=== PATIENT | male | born 1940 | race Hispanic/Latino ===

== ENCOUNTER 2018-05-11 16:04 | Inpatient (IN) | payer OTHER, MEDICARE ==
[2018-05-11] MEDS ORDERED: METOPROLOL TARTRATE 5 MG/5 ML INJ IV ONE ×2 (16:40→17:37)
[2018-05-11 16:57] LABS: Absolute Lymphocytes (CBC) 1.4 K/uL (0.7-4.9); Absolute Monocytes 1.4 K/uL (0.1-1.3); Basophils % 0.6 % (0-1.3); Eosinophils % 2.7 % (0-4.4); Hematocrit 27.6 % (39.6-49.0); Lymphocytes % 9.8 % (15.3-44.8); MCH 25.8 pg (27.0-35.0); MCV 80.1 fL (80-100); MPV 8.1 fL (7.6-11.3); Monocytes % 10.1 % (3.3-12.3); RBC Red Blood Cell Count 3.44 M/uL (4.33-5.43)
[2018-05-11 17:11] LABS: Protime INR 1.59
--- NOTE | 2018-05-11 17:12 | RAD REPORT ---
EXAM DESCRIPTION: CT - Head Brain Wo Cont - 05/11/2018 4:54 pm CLINICAL HISTORY: Alteration of awareness/hallucinations COMPARISON: November 2016 TECHNIQUE: Computed axial tomography of the head was obtained. IV contrast was not requested. All CT scans are performed using dose optimization technique as appropriate and may include automated exposure control or mA/KV adjustment according to patient size. FINDINGS: An intracranial bleed is not seen . The ventricles are normal in caliber. No extra-axial fluid collection is noted. Diffuse cerebral atrophy is present Fluid within the sinuses/ mastoids is not seen. Mild to moderate mucoperiosteal thickening involves t he right maxillary sinus IMPRESSION: No acute intracranial abnormality is seen. If patient's symptoms persist MRI of the bra in would be recommended.
--- NOTE | 2018-05-11 17:13 | ER ---
Nurse's Notes [facility] Name: Bobby Mcdaniel Jr Age: 78 yrs Sex: Male : 1940 Arrival Date: 05/11/2018 Time: 16:06 Bed 2 Private MD: Sandra Yi R Diagnosis: Altered mental status, unspecified;Atrial fibrillation and flutter Presentation: 05/11 16:07 Presenting complaint: Child states: "He is more confused than usual, he's been aj1 hallucinating. He's acting like he does when his CHF starts acting up.". 16:07 Acuity: RAYO 2 aj1 16:20 Transition of care: patient was not received from another setting of care. Risk aj1 Assessment: Do you want to hurt yourself or someone else? Patient reports no desire to harm self or others. Initial Sepsis Screen: Does the patient meet any 2 criteria? RR > 20 per min. HR > 90 bpm. Yes Does the patient have a suspected source of infection? Yes: Other: AMS If YES to both, name of provider notified: Stef Chau MD. Care prior to arrival: None. 16:20 Method Of Arrival: Wheelchair aj1 Triage Assessment: 16:20 General: Appears uncomfortable, Behavior is cooperative, agitated. Neuro: Level of aj1 Consciousness is awake, alert, obeys commands, confused, Patient has a history of dementia, but family states that he is more confused than normal. Cardiovascular: Rhythm is irregular Parent/caregiver reports patient has had a higher than normal heart rate. Respiratory: Airway is patent Respiratory effort is even, unlabored, Respiratory pattern is regular, symmetrical. 16:25 Pain: Denies pain. bp Historical: - Allergies: 16:25 No Known Allergies; bp - Home Meds: 16:25 allopurinol 300 mg oral tab 0.5 tab [Active]; aspirin 81 mg Oral TbEC 1 tab once daily bp [Active]; atorvastatin 20 mg Oral tab 1 tab once daily [Active]; fluticasone 50 mcg/actuation nasal spsn 1 spray 2 times per day [Active]; folic acid 800 mcg Oral tab 1 tab once daily [Active]; hydralazine 50 mg Oral tab 1 tab daily [Active]; Lasix 40 mg oral tab [Active]; losartan 100 mg Oral tab 1 tab once daily [Active]; meloxicam 7.5 mg Oral tab 1 tab once daily [Active]; metformin 500 mg Oral tab 2 tabs 2 times per day [Active]; metoprolol tartrate 50 mg Oral tab 1 tab once daily [Active]; Namzaric 28-10 mg Oral CSpX [Active]; potassium chloride 10 mEq Oral cpER 1 cap once daily [Active]; tamsulosin 0.4 mg Oral cp24 1 cap once daily [Active]; warfarin 5 mg Oral tab 1 tab once daily [Active]; Zyrtec 10 mg Oral tab 1 tab once daily [Active]; vitamin b12 shot [Active]; amlodipine 10 mg tab 1 tab once daily [Active]; - PMHx: 16:25 Atrial Fib; CHF; COPD; Dementia; Diabetes - NIDDM; Gout; aj1 16:25 Atrial Fib; CHF; COPD; Dementia; Diabetes - NIDDM; bp - Immunization history:: Flu vaccine is up to date. Adult Immunizations. - Social history:: Smoking status: Patient/guardian denies using tobacco, Smoking status: Patient/guardian denies using tobacco. - Ebola Screening: : Patient denies travel to an Ebola-affected area in the 21 days before illness onset Patient negative for fever greater than or equal to 101.5 degrees Fahrenheit, and additional compatible Ebola Virus Disease symptoms Patient denies exposure to infectious person Patient denies travel to an Ebola-affected area in the 21 days before illness onset No symptoms or risks identified at this time. Screenin:27 Abuse screen: Denies threats or abuse. Denies injuries from another. Nutritional bp screening: No deficits noted. Tuberculosis screening: No symptoms or risk factors identified. Fall Risk None identified. Assessment: 16:25 General: Appears in no apparent distress. uncomfortable, slender, Behavior is bp cooperative, appropriate for age, agitated, uncooperative. General: AFIB RVR NOTED ON MONITOR, MD NOTIFIED. Pain: Denies pain. 17:30 Reassessment: ADMIT IN PROCESS, LOW RVR ON MONITOR. bp 17:47 Reassessment: ADMIT MD AT B/S. bp 19:17 Reassessment: Patient appears in no apparent distress at this time. Patient and/or aa1 family updated on plan of care and expected duration. Pain level reassessed. Patient is alert, oriented x 3, equal unlabored respirations, skin warm/dry/pink. Awaiting bed assignment. 20:08 Reassessment: Patient appears in no apparent distress at this time. Patient is alert, aa1 oriented x 3, equal unlabored respirations, skin warm/dry/pink. Report given to Doretha on 4th floor Patient denies pain at this time. Vital Signs: 16:09 BP 145 / 75; Pulse 152; Resp 24; Temp 98.3; Pulse Ox 97% on R/A; Weight 88.45 kg (R); aj1 Height 5 ft. 11 in. (180.34 cm) (R); 16:30 BP 136 / 91; Pulse 120; Resp 20; Pulse Ox 98% on 2 lpm NC; bp 17:15 BP 124 / 76; Pulse 110; Resp 27; Pulse Ox 97% ; bp 17:30 BP 117 / 67; Pulse 108; Resp 26; Pulse Ox 96% ; bp 17:45 BP 133 / 84; Pulse 120; Resp 20; Pulse Ox 96% ; bp 18:30 BP 138 / 118; Pulse 112; Resp 29; Pulse Ox 96% on 2 lpm NC; bp 19:17 BP 134 / 84; Pulse 116; Resp 22; Pulse Ox 96% on R/A; aa1 20:06 BP 120 / 64; Pulse 112; Resp 22; Temp 98.2; Pulse Ox 99% on R/A; Pain 0/10; aa1 16:09 Body Mass Index 27.20 (88.45 kg, 180.34 cm) aj1 ED Course: 16:06 Patient arrived in ED. tw3 16:06 Sandra Yi MD is Private Physician. tw3 16:08 Stef Chau MD is Attending Physician. kdr 16:09 Triage completed. aj1 16:10 Arm band placed on Patient placed in an exam room, Patient Triage completed at bedside. aj1 16:11 Ezra Cm, LEIDY is Primary Nurse. bp 16:27 Patient has correct armband on for positive identification. Bed in low position. Call bp light in reach. Side rails up X2. Adult w/ patient. 16:40 Inserted saline lock: 20 gauge in left antecubital area, using aseptic technique. Blood bp collected. 16:[address] via stretcher. nj 16:54 CT Head Brain wo Cont In Process Unspecified. EDMS 17:03 XRAY Chest (1 view) In Process Unspecified. EDMS 17:11 Izabela Crews MD is Hospitalizing Provider. kdr 20:05 No provider procedures requiring assistance completed. Patient admitted, IV remains in aa1 place. Administered Medications: 16:40 Drug: Metoprolol 5 mg Route: IVP; Site: left antecubital; bp 17:35 Drug: Metoprolol 5 mg Route: IVP; Site: left antecubital; bp 20:14 Follow up: Response: No adverse reaction; Marked relief of symptoms aa1 Outcome: 17:12 Decision to Hospitalize by Provider. kdr 20:09 Admitted to Tele accompanied by tech, via wheelchair, room 430, with oxygen, Report aa1 called to Doretha 20:09 Condition: stable 20:09 Discharge instructions given to patient, family, Instructed on the need for admit, Demonstrated understanding of instructions. 20:16 Patient left the ED. aa1 Signatures: Dispatcher [employer] Jennifer Plaza, RN RN aj1 Shaunna Waters RN RN aa1 Stef Chau MD MD kdr Jordan, Nathan nj Wade, Tia tw3 Ezra mC, RN RN bp Corrections: (The following items were deleted from the chart) 16:23 16:20 Arm band placed on Patient placed in an exam room, Patient Triage completed at [facility] bedside aj 17:48 17:46 BP 117 / 67; Pulse 108bpm; Resp 26bpm; Pulse Ox 96%; bp bp
--- NOTE | 2018-05-11 17:14 | EDPHYS ---
Physician Documentation [facility] Name: Bobby Mcdaniel Jr Age: 78 yrs Sex: Male : 1940 Arrival Date: 05/11/2018 Time: 16:06 Bed 2 Private MD: Sandra Yi R ED Physician Stef Chau HPI: 05/11 16:58 This 78 yrs old Male presents to ER via Wheelchair with complaints of Elevated kdr Heart Rate, Hallucinations/Confusion. 16:58 The patient presents with confusion, disorientation. Onset: The symptoms/episode kdr began/occurred gradually, 1 week(s) ago. Possible causes: unknown. Associated signs and symptoms: Pertinent positives: confusion, palpitations. Current symptoms: In the emergency department the patient's symptoms are unchanged from the initial presentation. Patient's baseline: Neuro: alert and fully oriented, Motor: no deficits, Ambulation: walks without assistance, Speech: normal, The patient has a previous history of A-fib ww/ RVR. The patient has not experienced similar symptoms in the past. The patient has been recently seen by a physician: the patient's primary care provider, Routine office visits. The patient's states that he has been intermittently confused over the last week and that it usually occurs at night. He has also had elevated HR (Hx of A-fib/RVR). denies any change or missed medications. He has not had this before. Historical: - Allergies: 16:25 No Known Allergies; bp - Home Meds: 16:25 allopurinol 300 mg oral tab 0.5 tab [Active]; aspirin 81 mg Oral TbEC 1 tab once daily bp [Active]; atorvastatin 20 mg Oral tab 1 tab once daily [Active]; fluticasone 50 mcg/actuation nasal spsn 1 spray 2 times per day [Active]; folic acid 800 mcg Oral tab 1 tab once daily [Active]; hydralazine 50 mg Oral tab 1 tab daily [Active]; Lasix 40 mg oral tab [Active]; losartan 100 mg Oral tab 1 tab once daily [Active]; meloxicam 7.5 mg Oral tab 1 tab once daily [Active]; metformin 500 mg Oral tab 2 tabs 2 times per day [Active]; metoprolol tartrate 50 mg Oral tab 1 tab once daily [Active]; Namzaric 28-10 mg Oral CSpX [Active]; potassium chloride 10 mEq Oral cpER 1 cap once daily [Active]; tamsulosin 0.4 mg Oral cp24 1 cap once daily [Active]; warfarin 5 mg Oral tab 1 tab once daily [Active]; Zyrtec 10 mg Oral tab 1 tab once daily [Active]; vitamin b12 shot [Active]; amlodipine 10 mg tab 1 tab once daily [Active]; - PMHx: 16:25 Atrial Fib; CHF; COPD; Dementia; Diabetes - NIDDM; Gout; aj1 16:25 Atrial Fib; CHF; COPD; Dementia; Diabetes - NIDDM; bp - Immunization history:: Flu vaccine is up to date. Adult Immunizations. - Social history:: Smoking status: Patient/guardian denies using tobacco, Smoking status: Patient/guardian denies using tobacco. - Ebola Screening: : Patient denies travel to an Ebola-affected area in the 21 days before illness onset Patient negative for fever greater than or equal to 101.5 degrees Fahrenheit, and additional compatible Ebola Virus Disease symptoms Patient denies exposure to infectious person Patient denies travel to an Ebola-affected area in the 21 days before illness onset No symptoms or risks identified at this time. ROS: 16:58 Constitutional: Negative for fever, chills, and weight loss, Eyes: Negative for injury, kdr pain, redness, and discharge, ENT: Negative for injury, pain, and discharge, Neck: Negative for injury, pain, and swelling, Respiratory: Negative for shortness of breath, cough, wheezing, and pleuritic chest pain, Abdomen/GI: Negative for abdominal pain, nausea, vomiting, diarrhea, and constipation, Back: Negative for injury and pain, : Negative for injury, bleeding, discharge, and swelling, MS/Extremity: Negative for injury and deformity, Skin: Negative for injury, rash, and discoloration, Neuro: Negative for headache, weakness, numbness, tingling, and seizure activity. Allergy/Immunology: Negative for hives, rash, and allergies, Endocrine: Negative for neck swelling, polydipsia, polyuria, polyphagia, and marked weight changes, Hematologic/Lymphatic: Negative for swollen nodes, abnormal bleeding, and unusual bruising. 16:58 Cardiovascular: Positive for palpitations, Negative for chest pain, edema, orthopnea. 16:58 Psych: Positive for insomnia, Confusion. Exam: 17:08 Constitutional: This is a well developed, well nourished patient who is awake, alert, kdr and in no acute distress. Head/Face: Normocephalic, atraumatic. Eyes: Pupils equal round and reactive to light, extra-ocular motions intact. Lids and lashes normal. Conjunctiva and sclera are non-icteric and not injected. Cornea within normal limits. Periorbital areas with no swelling, redness, or edema. Neck: Trachea midline, no thyromegaly or masses palpated, and no cervical lymphadenopathy. Supple, full range of motion without nuchal rigidity, or vertebral point tenderness. No Meningismus. Chest/axilla: Normal chest wall appearance and motion. Nontender with no deformity. No lesions are appreciated. Respiratory: Lungs have equal breath sounds bilaterally, clear to auscultation and percussion. No rales, rhonchi or wheezes noted. No increased work of breathing, no retractions or nasal flaring. Abdomen/GI: Soft, non-tender, with normal bowel sounds. No distension or tympany. No guarding or rebound. No evidence of tenderness throughout. Back: No spinal tenderness. No costovertebral tenderness. Full range of motion. Skin: Warm, dry with normal turgor. Normal color with no rashes, no lesions, and no evidence of cellulitis. MS/ Extremity: Pulses equal, no cyanosis. Neurovascular intact. Full, normal range of motion. Psych: Awake, alert, with orientation to person, place and time. Behavior, mood, and affect are within normal limits. 17:08 Neuro: Orientation: no acute changes, per family, Mentation: able to follow commands, confused. 17:09 Cardiovascular: Rate: tachycardic, Rhythm: irregularly irregular, Heart sounds: normal, kdr Edema: 1+ edema to level of left midcalf, left ankle, right midcalf and right ankle. Vital Signs: 16:09 BP 145 / 75; Pulse 152; Resp 24; Temp 98.3; Pulse Ox 97% on R/A; Weight 88.45 kg (R); aj1 Height 5 ft. 11 in. (180.34 cm) (R); 16:30 BP 136 / 91; Pulse 120; Resp 20; Pulse Ox 98% on 2 lpm NC; bp 17:15 BP 124 / 76; Pulse 110; Resp 27; Pulse Ox 97% ; bp 17:30 BP 117 / 67; Pulse 108; Resp 26; Pulse Ox 96% ; bp 17:45 BP 133 / 84; Pulse 120; Resp 20; Pulse Ox 96% ; bp 18:30 BP 138 / 118; Pulse 112; Resp 29; Pulse Ox 96% on 2 lpm NC; bp 19:17 BP 134 / 84; Pulse 116; Resp 22; Pulse Ox 96% on R/A; aa1 20:06 BP 120 / 64; Pulse 112; Resp 22; Temp 98.2; Pulse Ox 99% on R/A; Pain 0/10; aa1 16:09 Body Mass Index 27.20 (88.45 kg, 180.34 cm) aj1 MDM: 17:09 Data reviewed: vital signs, nurses notes, lab test result(s), radiologic studies. kdr Counseling: I had a detailed discussion with the patient and/or guardian regarding: the historical points, exam findings, and any diagnostic results supporting the discharge/admit diagnosis, lab results, radiology results. 17:12 Patient medically screened. kdr 05/11 16:37 Order name: Basic Metabolic Panel kdr 05/11 16:37 Order name: CBC with Diff kdr 05/11 16:37 Order name: LFT's kdr 05/11 16:37 Order name: Magnesium kdr 05/11 16:37 Order name: NT PRO-BNP kdr 05/11 16:37 Order name: PT-INR kdr 05/11 16:37 Order name: Troponin (emerg Dept Use Only) kdr 05/11 16:37 Order name: XRAY Chest (1 view) kdr 05/11 16:37 Order name: EKG; Complete Time: 16:38 kdr 05/11 16:37 Order name: Cardiac monitoring; Complete Time: 16:41 kdr 05/11 16:37 Order name: CT Head Brain wo Cont kdr 05/11 16:38 Order name: Basic Metabolic Panel EDMS 05/11 16:38 Order name: CBC with Automated Diff EDMS 05/11 16:37 Order name: EKG - Nurse/Tech; Complete Time: 16:41 kdr 05/11 16:37 Order name: IV Saline Lock; Complete Time: 16:41 kdr 05/11 16:37 Order name: Labs collected and sent; Complete Time: 16:41 kdr 05/11 16:37 Order name: O2 Per Protocol; Complete Time: 16:41 kdr 05/11 16:37 Order name: O2 Sat Monitoring; Complete Time: 16:41 kdr Administered Medications: 16:40 Drug: Metoprolol 5 mg Route: IVP; Site: left antecubital; bp 17:35 Drug: Metoprolol 5 mg Route: IVP; Site: left antecubital; bp 20:14 Follow up: Response: No adverse reaction; Marked relief of symptoms aa1 Disposition: 05/11/18 17:12 Hospitalization ordered by Izabela Crews for Observation. Preliminary diagnosis are Altered mental status, unspecified, Atrial fibrillation and flutter. - Bed requested for Telemetry/MedSurg (observation). - Status is Observation. aa1 - Condition is Fair. - Problem is new. - Symptoms have improved. UTI on Admission? No Signatures: Dispatcher [employer] EDMS Jennifer Santos RN RN aj1 Soumya Buitrago RN RN kl Kern, Alissa, RN RN aa1 Stef Chau MD MD [facility] Ezra Cm RN RN bp Corrections: (The following items were deleted from the chart) 17:09 16:58 Constitutional: Negative for fever, chills, and weight loss, Eyes: Negative for kdr injury, pain, redness, and discharge, ENT: Negative for injury, pain, and discharge, Neck: Negative for injury, pain, and swelling, Respiratory: Negative for shortness of breath, cough, wheezing, and pleuritic chest pain, Abdomen/GI: Negative for abdominal pain, nausea, vomiting, diarrhea, and constipation, Back: Negative for injury and pain, : Negative for injury, bleeding, discharge, and swelling, MS/Extremity: Negative for injury and deformity, Skin: Negative for injury, rash, and discoloration, Neuro: Negative for headache, weakness, numbness, tingling, and seizure activity. Allergy/Immunology: Negative for hives, rash, and allergies, Endocrine: Negative for neck swelling, polydipsia, polyuria, polyphagia, and marked weight changes, Hematologic/Lymphatic: Negative for swollen nodes, abnormal bleeding, and unusual bruising, kdr 17:10 17:08 Constitutional: This is a well developed, well nourished patient who is awake, kdr alert, and in no acute distress. Head/Face: Normocephalic, atraumatic. Eyes: Pupils equal round and reactive to light, extra-ocular motions intact. Lids and lashes normal. Conjunctiva and sclera are non-icteric and not injected. Cornea within normal limits. Periorbital areas with no swelling, redness, or edema. Neck: Trachea midline, no thyromegaly or masses palpated, and no cervical lymphadenopathy. Supple, full range of motion without nuchal rigidity, or vertebral point tenderness. No Meningismus. Chest/axilla: Normal chest wall appearance and motion. Nontender with no deformity. No lesions are appreciated. Respiratory: Lungs have equal breath sounds bilaterally, clear to auscultation and percussion. No rales, rhonchi or wheezes noted. No increased work of breathing, no retractions or nasal flaring. Abdomen/GI: Soft, non-tender, with normal bowel sounds. No distension or tympany. No guarding or rebound. No evidence of tenderness throughout. Back: No spinal tenderness. No costovertebral tenderness. Full range of motion. Skin: Warm, dry with normal turgor. Normal color with no rashes, no lesions, and no evidence of cellulitis. MS/ Extremity: Pulses equal, no cyanosis. Neurovascular intact. Full, normal range of motion. Psych: Awake, alert, with orientation to person, place and time. Behavior, mood, and affect are within normal limits. kdr 19:20 17:12 Hospitalization Ordered by Izabela Crews MD for Observation. Preliminary diagnosis kl is Altered mental status, unspecified; Atrial fibrillation and flutter. Bed requested for Telemetry/MedSurg (observation). Status is Observation. Condition is Fair. Problem is new. Symptoms have improved. UTI on Admission? No. kdr 20:16 19:20 05/11/2018 17:12 Hospitalization Ordered by Izabela Crews MD for Observation. aa1 Preliminary diagnosis is Altered mental status, unspecified; Atrial fibrillation and flutter. Bed requested for Telemetry/MedSurg (observation). Status is Observation. Condition is Fair. Problem is new. Symptoms have improved. UTI on Admission? No. kl
--- NOTE | 2018-05-11 17:15 | RAD REPORT ---
EXAM DESCRIPTION: [facility] Single View05/11/2018 5:03 pm CLINICAL HISTORY: Atrial fibrillation COMPARISON: June 2017 FINDINGS: Mild interstitial lung opacities are unchanged. The heart is borderline enlarged
[2018-05-11 17:34] LABS: ALT/SGPT 21 U/L (12-78); AST/SGOT 17 U/L (15-37); Albumin 3.3 g/dL (3.4-5.0); Alkaline Phosphatase 89 U/L (45-117); BUN Blood Urea Nitrogen 17 mg/dL (7-18); Bicarbonate 28 mmol/L (21-32); Bilirubin Direct 0.2 mg/dL (0-0.2); Bilirubin Total 0.5 mg/dL (0.2-1.0); Glucose Level 162 mg/dL (74-106); Magnesium 1.7 mg/dL (1.8-2.4); NT PRO-BNP 4565 pg/mL (<450); Potassium 3.2 mmol/L (3.5-5.1); Protein, Total 7.4 g/dL (6.4-8.2); Sodium Level 141 mmol/L (136-145); Troponin (Emerg Dept Use Only) < 0.02 ng/mL (0.0-0.045)
[2018-05-11] MEDS ORDERED: ACETAMINOPHEN 500 MG TAB PO PRN (18:04)
[2018-05-11] MEDS ORDERED: ALBUTEROL 2.5 MG/3 ML NEB SOL NEB PRN (18:04)
[2018-05-11] MEDS ORDERED: METOPROLOL TARTRATE 5 MG/5 ML INJ IV PRN (18:04)
[2018-05-11] MEDS ORDERED: IPRATROPIUM BROM 0.5MG/2.5ML NEB PRN (18:04)
[2018-05-11] MEDS ORDERED: ONDANSETRON 4 MG/2 ML VIAL IV PRN (18:04)
[2018-05-11] MEDS ORDERED: GLUCAGON 1 MG/VIAL IM PRN (18:09)
[2018-05-11] MEDS ORDERED: D50W 25 GM/50 ML SYRINGE IV PRN (18:09)
[2018-05-11] MEDS ORDERED: CEFTRIAXONE/SWI 1gm 1 GM/10 ML SYR ONE (20:57)
[2018-05-11] MEDS: INSULIN -REGULAR HUMAN 50 UNIT/0.5 ML ML SQ SCH (21:00)
[2018-05-11] MEDS ORDERED: CEFTRIAXONE 1 GM/NS 50 ML 1 GM/50 ML BAG IV SCH (21:00)
[2018-05-11] MEDS ORDERED: MAGNESIUM SULFATE 1 gm IVPB 1 GM/100 ML BAG IV ONE (22:16)
[2018-05-11] MEDS ORDERED: POTASSIUM 25 MEQ EFFERV TAB PO ONE (22:17)
[2018-05-11 23:42] LABS: Urine Appearance CLEAR; Urine Bilirubin NEGATIVE (NEG); Urine Blood NEGATIVE (NEG); Urine Color YELLOW; Urine Glucose NEGATIVE (NEG); Urine Protein NEGATIVE (NEG); Urine Specific Gravity 1.015 (1.005-1.030)
[2018-05-11 23:43] LABS: Urine Microscopic Reflex NO UMIC
--- NOTE | 2018-05-12 02:09 | HP ---
Date of Admission: 05/11/2018 Code Status: Do not resuscitate. The patient has a living will. and daughter at the bedside confirmed code status. Consultants: Dr. Thomas, Cardiology. Chief Complaint: Hallucinations, shortness of breath, confusion. History Of Present Illness: The patient is a 78-year-old male with past medical history of dementia congestive heart failure; atrial fibrillation, on Coumadin; insulin-dependent diabetes; COPD with oxygen at night only; hypertension; obstructive sleep apnea on CPAP, who was in his usual state of health until approximately 5 days prior to admission when the patient had some increased frequency of hallucinations along with some dry cough and shortness of breath. The patient has been using his oxygen more during the daytime as well, usually only uses it at night. The patient's symptoms are constant, moderate, progressively worsening. He did see his primary care physician, who gave the patient some allergy medicine for sinus congestion, also found to have some UTI and prostatitis. The patient since then has only had some low-grade fevers and due to worsening hallucinations, comes in to the hospital for further evaluation. The patient was found to be in atrial fibrillation with RVR. His lab work found multiple electrolyte abnormalities including hypokalemia and hypomagnesemia. CT scan of the head was done due to his altered mental state from baseline as he is on blood thinners and had a fall last week, , however, did not show any acute bleed. The patient's chest x-ray showed mild interstitial lung opacities, which were the same since 2017. The patient was then referred for admission. When seen in the ER, he was awake, alert, oriented to self and place, which is around his baseline due to his dementia; however, the hallucinations are new. Past Medical History: Diabetes, non-insulin dependent; Alzheimer's dementia; congestive heart failure; atrial fibrillation, on Coumadin; COPD, oxygen dependent at night; hypertension; sleep apnea, now using CPAP, follows with pulmonology as outpatient. Past Surgical History: None. Medications: List reviewed. Allergies: NO KNOWN DRUG ALLERGIES. THEY DO REPORT ADVERSE SIDE EFFECTS TO CODEINE. THE PATIENT DOES GET CONFUSED. Family History: Positive for coronary artery disease in the mom and the sister. Social History: The patient lives at home. The patient is , has a daughter, is fairly independent in his activities of daily living. Does use a cane for ambulation. No tobacco use. Has quit drinking in 2001. No illicit drug use. 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 Review of Systems: Ten point system reviewed, negative except as per HPI. Physical Examination: Vital Signs: Blood pressure 145/75, pulse 152, respirations 24, temperature 98.3, O2 97% on room air. General: Awake, alert, oriented x2. In some mild distress. Ill-appearing elderly male. HEENT: Normocephalic, atraumatic. PERRLA. EOMI. Moist mucous membranes. Oropharynx is clear. Poor dentition. Conjunctiva is anicteric. Neck: Supple. No JVD. Trachea midline. CV: S1, S2. Irregularly irregular. Peripheral pulses present. Respiratory: Diminished breath sounds at the bases, otherwise moving air well. No wheezing or crackles. The patient slightly tachypneic, but no use of accessory muscles or stridor. Gastrointestinal: Abdomen is soft, nontender, nondistended. Positive bowel sounds. No guarding or rigidity. Extremities: No clubbing, cyanosis, or edema. Neuro: Cranial nerves 2 through 12 intact grossly. No focal neurological deficit. Speech is normal. Strength is 5/5 bilateral upper and lower extremities. Sensation intact to light touch. Skin: No rashes. Normal skin turgor. Psych: Mood is somewhat euphoric. Affect is congruent with mood. Insight and judgment are fair. Laboratory Data: WBC 14.4, H and H 8.9 and 27.6, platelets 368, neutrophils 76% . INR 1.59. Sodium 141, potassium 3.2, chloride 103, CO2 28, BUN 17, creatinine 1.3, glucose 162, calcium 8.8, magnesium 1.7. BNP 4565. Troponin less than 0.02. Albumin 3.3. CT scan of the head shows no acute intracranial abnormality. Mild to moderate mucoperiosteal thickening involves the right maxillary sinus. No intracranial bleed. Chest x-ray shows mild interstitial lung opacities, unchanged from June 2017. Heart borderline enlarged. EKG shows atrial fibrillation, rate of 120s. Assessment And Plan: A 78-year-old male with. 1. Atrial fibrillation with rapid ventricular response. The patient does have a history of atrial fibrillation, is on Coumadin. We will use metoprolol IV p.r.n. to control rate. We will resume Coumadin. We will check INR daily. Currently subtherapeutic. 2. Hypokalemia. 3. Hypomagnesemia. We will replace and monitor. 4. Congestive heart failure, chronic. Last known ejection fraction is 64%. Diastolic dysfunction. 5. Mild pulmonary hypertension. 6. Diabetes mellitus type 2 non-insulin requiring with hyperglycemia. We will continue sliding scale insulin. Check blood glucose levels a.c. and h.s. 7. Chronic obstructive pulmonary disease with chronic respiratory failure. The patient now requiring oxygen 12/02 instead of just at night. We will continue supplemental oxygen and breathing treatments. 8. Essential hypertension. We will resume home medications. 9. Obstructive sleep apnea. Continue CPAP at night. 10. 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 11. Neutrophilic leukocytosis. We will check UA. The patient may have urinary tract infection or prostatitis. May need antibiotics. We will follow up on UA. 12. Gastrointestinal and deep venous thrombosis prophylaxis. The patient is already on Coumadin. Plan: Admit the patient to Med-Surg, place as inpatient. /ROJELIO Voice ID: [id number] [email or web address]
[2018-05-12] MEDS ORDERED: WARFARIN SODIUM 7.5 MG TAB PO SCH (05:00)
[2018-05-12 07:29] LABS: Absolute Lymphocytes (CBC) 1.1 K/uL (0.7-4.9); Absolute Monocytes 1.3 K/uL (0.1-1.3); Absolute Neutrophil 6.7 K/uL (1.8-8.0); Basophils % 0.7 % (0-1.3); Eosinophils % 4.1 % (0-4.4); Hematocrit 24.7 % (39.6-49.0); Lymphocytes % 11.3 % (15.3-44.8); MCH 25.9 pg (27.0-35.0); MCV 80.2 fL (80-100); MPV 7.6 fL (7.6-11.3); Monocytes % 13.7 % (3.3-12.3); RBC Red Blood Cell Count 3.08 M/uL (4.33-5.43)
[2018-05-12] MEDS: INSULIN -REGULAR HUMAN 50 UNIT/0.5 ML ML SQ SCH ×4 (07:30→20:49)
[2018-05-12 07:47] LABS: Bilirubin Total 0.8 mg/dL (0.2-1.0); Magnesium 2.3 mg/dL (1.8-2.4); Phosphorus 2.5 mg/dL (2.5-4.9); Protein, Total 6.6 g/dL (6.4-8.2)
[2018-05-12 08:00] LABS: Protime INR 1.74
[2018-05-12] MEDS ORDERED: POTASSIUM 25 MEQ EFFERV TAB PO ONE (08:27)
[2018-05-12] MEDS ORDERED: CEFTRIAXONE/SWI 1gm 1 GM/10 ML SYR IVP SCH (09:00)
[2018-05-12] MEDS ORDERED: HOME MED [FLUTICASONE 50MCG NASAL SPRAY] NAS SCH (11:00)
[2018-05-12] MEDS: METOPROLOL TAR 50 MG TAB PO SCH (12:00)
[2018-05-12] MEDS: FUROSEMIDE 40 MG TABLET PO SCH (12:16)
[2018-05-12] MEDS: HYDRALAZINE HCL 25 MG TABLET PO SCH ×3 (12:17→20:48)
[2018-05-12] MEDS: LOSARTAN POTASSIUM 50 MG TABLET PO SCH (12:18)
[2018-05-12] MEDS: AMLODIPINE 10 MG TAB PO SCH (12:18)
[2018-05-12] MEDS: ALLOPURINOL 300 MG TAB PO SCH (12:18)
[2018-05-12] MEDS: ASPIRIN EC 81 MG TAB PO SCH (12:19)
[2018-05-12] MEDS: POTASSIUM CL SA 10 MEQ TAB PO SCH (12:19)
[2018-05-12] MEDS ORDERED: HOME MED 1 EA UNK (Hydralazine Hcl [Apresoline] 1 TAB) PO SCH (14:00)
--- NOTE | 2018-05-12 15:50 | PN ---
Date of Progress Note: 05/12/2018 Subjective: The patient seen and examined, chart reviewed, and case discussed with RN. at the bedside. The patient had an uneventful night, not having as much visual hallucinations, but still co nfused. Review of Systems: Limited due to the patient's medical condition, however, negative except as above. Medications: List reviewed. Objective: Vital Signs: Temperature 97.9, heart rate 117, respirations 18, blood pressure 132/82, O 2 94% on 4 L via nasal cannula. General: Awake, alert, oriented x2, not in any acute distress. Ill-appearing male, elderly. CV: S1, S2. Irregularly irregular. Respiratory: Moving air well bilaterally. No wheezing. Gastrointestinal: Abdomen is soft, nontender, nondistended. Positive bowel sounds. Extremities: No clubbing, cyanosis. Trace pedal edema. Neurologic: Nonfocal. Laboratory Data: Sodium 142, potassium 3, chloride 104, CO2 30, BUN 14, creatinine 1, glucose 134, c alcium 8.7, magnesium 2.3, phosphorus 2.5. WBC 9.5, H and H 8 and 24.7, platelets 305, neutrophils 7 0%, INR 1.74. UA is negative. Assessment: A 78-year-old male with: 1.Atrial fibrillation with rapid ventricular response. We will continue metoprolol IV. We will res ume home dose of metoprolol. Continue Coumadin. INR subtherapeutic at 1.74. Appreciate Dr. Thomas 's input, likely due to electrolyte disturbances. 2.Hypokalemia. Replace and monitor. 3.Hypomagnesemia. We will replace and monitor. 4.Diastolic congestive heart failure, chronic, EF is 64%. We will continue with 1500 mL fluid restr iction and monitor I's and O's, daily weights. 5.Mild pulmonary hypertension. 6.Diabetes mellitus type 2 non-insulin requiring with hyperglycemia. Continue sliding scale insulin and continue Accu-Cheks. 7.Chronic obstructive pulmonary disease with chronic respiratory failure. The patient usually on ox ygen just at night, however, at this point on 4 L throughout the day. 8.Sinusitis. Continue symptomatic treatment with Flonase. 9.Essential hypertension. Resume home medications. 10.Obstructive sleep apnea. The patient compliant with CPAP at night. 11.Alzheimer dementia, early onset with behavioral disturbances and hallucinations. Stable. 12.Neutrophilic leukocytosis, resolved. UA is negative. Chest x-ray is negative. We will DC antib iotics. 13.Gastrointestinal and deep venous thrombosis prophylaxis. The patient already on Coumadin. Plan: Recheck potassium level. Follow up with Cardiology. Will likely need repeat echocardiogram. /ROJELIO Voice ID: [id number] Report ID: [id number]
[2018-05-12] MEDS ORDERED: POTASSIUM CL SA 10 MEQ TAB PO ONE (17:33)
--- NOTE | 2018-05-12 17:35 | EKG ---
Test Date: 2018-05-11 Test Time: 16:30:11 Pulvi Mixer Operator: JUNIOR MEASUREMENT RESULTS: Intervals: Rate: 133 NV: QRSD: 86 QT: 312 QTc: 464 Odell: P: NV: QRS: -64 T: 81 INTERPRETIVE STATEMENTS: Atrial fibrillation with rapid ventricular response Left axis deviation Abnormal ECG Compared to ECG 06/21/2017 08:03:52 Left-axis deviation now present Ventricular premature complex(es) no longer present Aberrant conduction of supraventricular beat(s) no longer present Left anterior fascicular block no longer present Electronically Signed On 05-12-18 17:33:36 CDT by Bienvenido Thomas
[2018-05-12] MEDS: TAMSULOSIN 0.4 MG SR CAP PO SCH (20:48)
[2018-05-12] MEDS: ATORVASTATIN 20 MG TAB PO SCH (20:48)
--- NOTE | 2018-05-13 04:43 | CON ---
Date of Consultation: 05/12/[address] Crews's service on 05/11/2018. The patient was seen on 05/12/2018. Reason For Consultation: Atrial fibrillation. History Of Present Illness: Mr. Mcdaniel is 78 years old, admitted with altered mental status, halluc ination, and confusion. He is in chronic atrial fibrillation, but his rate , and I was con sulted because of that. He takes Coumadin for his atrial fibrillation as well as metoprolol. He onl y takes the metoprolol 50 mg daily. No complaints from a cardiac standpoint except for some palpitat ion. No chest pain, shortness of breath, PND, orthopnea, pedal edema, palpitations, or syncope. He was noted to have a white count of 14,000 and what appeared to be a UTI. He was anemic at 8.9. BNP was 4565. His glucose level was 250. His heart rate was 110. He had a negative chest x-ray, negati ve CT of his head, and normal echocardiogram, was done in June of 2017. He is on antibiotics plu s his home medications . Allergies: HE IS ALLERGIC TO CODEINE, LORAZEPAM, AND TRAMADOL. Review of Systems: Negative. Social History: Negative. Family History: Noncontributory. Medications: At home include Coumadin, metformin, metoprolol, losartan, Lasix, hydralazine, aspirin, Lipitor, and amlodipine. Physical Examination: Vital Signs: He was in AFib, rate of 110, afebrile. HEENT: Negative. Neck: Supple. No bruit. Chest: Clear. Cardiac: Revealed atrial fibrillation. No murmurs, gallops, or rubs. Abdomen: Benign. Extremities: Revealed no clubbing, cyanosis, or edema. Diagnostic Data: As stated earlier. Impression And Plan: 1.Chronic atrial fibrillation, on Coumadin. Rate is high because of what appeared to be an infectio n plus anemia. I do not think we are dealing with any congestive heart failure or coronary artery di sease at this point. I will consider increasing his beta-blockers. No cardiac workup recommended. He just had an echocardiogram in June of . He has a negative chest x-ray. 2.Altered mental status. Certainly could be due to an infection and maybe his polypharmacy. 3.Chronic diastolic congestive heart failure. 4.Chronic obstructive pulmonary disease. 5.Diabetes. 6.Dementia. 7.Gout. MATA/ROJELIO Voice ID: [id number] Report ID: [id number]
[2018-05-13 04:54] LABS: Absolute Lymphocytes (CBC) 1.4 K/uL (0.7-4.9); Absolute Neutrophil 5.7 K/uL (1.8-8.0); Basophils % 0.8 % (0-1.3); Eosinophils % 4.9 % (0-4.4); Hematocrit 22.8 % (39.6-49.0); Lymphocytes % 15.8 % (15.3-44.8); MCH 25.8 pg (27.0-35.0); MCV 79.6 fL (80-100); MPV 7.9 fL (7.6-11.3); RBC Red Blood Cell Count 2.87 M/uL (4.33-5.43)
[2018-05-13 05:01] LABS: Potassium 3.1 mmol/L (3.5-5.1)
[2018-05-13] MEDS ORDERED: POTASSIUM CL SA 10 MEQ TAB PO ONE (06:33)
[2018-05-13] MEDS: INSULIN -REGULAR HUMAN 50 UNIT/0.5 ML ML SQ SCH ×4 (07:30→20:39)
[2018-05-13] MEDS ORDERED: HOME MED 1 EA UNK (Losartan Potassium [Cozaar] 100 MG) PO SCH (09:00)
[2018-05-13] MEDS: ASPIRIN EC 81 MG TAB PO SCH (09:02)
[2018-05-13] MEDS: FUROSEMIDE 40 MG TABLET PO SCH (09:02)
[2018-05-13] MEDS: ALLOPURINOL 300 MG TAB PO SCH (09:02)
[2018-05-13] MEDS: POTASSIUM CL SA 10 MEQ TAB PO SCH (09:02)
[2018-05-13] MEDS: AMLODIPINE 10 MG TAB PO SCH (09:03)
[2018-05-13] MEDS: HYDRALAZINE HCL 25 MG TABLET PO SCH ×3 (09:03→20:25)
[2018-05-13] MEDS: LOSARTAN POTASSIUM 50 MG TABLET PO SCH (09:03)
[2018-05-13] MEDS: MEMANTINE PO SCH (09:04)
[2018-05-13] MEDS: DONEPEZIL PO SCH (09:04)
[2018-05-13] MEDS: METOPROLOL TAR 50 MG TAB PO SCH (09:04)
[2018-05-13 13:25] LABS: Ferritin 99.5 ng/mL (26-388)
[2018-05-13 14:20] LABS: Protime INR 1.55
[2018-05-13] MEDS ORDERED: WARFARIN SODIUM 5 MG TAB PO SCH (17:00)
--- NOTE | 2018-05-13 17:41 | PN ---
Date of Progress Note: 05/13/2018 History Of Present Illness: Patient seen and examined, chart reviewed, and case discussed with LEIDY Thomas. The patient's rate has been well controlled. The patient does have some confusion; l ast night he pulled out his CPAP tubing and took off his oxygen, however, was able to be redirected b y family members. Review of Systems: Negative except as above. Medications: List reviewed. Physical Examination: Vital Signs: Temperature 97.2, heart rate 100, blood pressure 148/79, respirations 20, O2 saturation s 91% on 3 L via nasal cannula. General: Awake, alert, oriented x2, in no acute distress, elderly male. CV: S1 and S2, irregularly irregular. Peripheral pulses present. Respiratory: Moving air well bilaterally. No wheezing. Gastrointestinal: Abdomen is soft, nontender, nondistended. Positive bowel sounds. Extremities: No clubbing, cyanosis. The patient does have some pedal edema. Neurologic: Nonfocal. Laboratory Data: WBC 8.6, H and H 7.4/22.8, platelets 297, neutrophils 66%. Recheck of hemoglobin/h ematocrit is 7.5 and 23. INR is pending. Sodium 144, potassium 3.1, chloride 105, CO2 31, BUN 15, c reatinine 1.1, glucose 133, calcium 8.4. Assessment And Plan: A 78-year-old male with: 1.Atrial fibrillation with rapid ventricular response, likely secondary to electrolyte abnormalities and possibly his anemia. We will continue with IV Lopressor, rate is better controlled. Continue o n metoprolol. Appreciate Dr. Thomas's input. The patient is on Coumadin for anticoagulation. INR is subtherapeutic. We will check INR today. 2.Hypokalemia. We will replace and monitor. 3.Hypomagnesemia, replaced. Continue monitoring. 4.Diastolic congestive heart failure, chronic. Ejection fraction is 64%. We will continue fluid re striction and monitor fluid balance. 5.Microcytic normochromic anemia, maybe an anemia of chronic disease versus iron deficiency anemia. We will obtain iron panel and repeat H and H, transfuse as needed. 6.Mild pulmonary hypertension. 7.Diabetes mellitus type 2, non-insulin requiring with hyperglycemia. We will continue sliding scal e including Accu-Cheks. Pressures have been elevated. 8.Chronic obstructive pulmonary disease with chronic respiratory failure. The patient requiring O2 throughout the day, is on 4 L. We will try to wean as tolerated. 9.Sinusitis. Continue Flonase. 10.Essential hypertension, stable. 11.Obstructive sleep apnea, compliant with CPAP at night. 12.Alzheimer dementia, early onset, with behavior disturbance. The patient also having some halluci nations last night, pulled out his CPAP tubing, was able to be redirected however. We recommend carlosi ly staying with him at night for redirection. 13.Gastrointestinal and deep venous thrombosis prophylaxis. The patient is on Coumadin. Replace electrolytes. Check stool occult blood. The patient is on Coumadin. We will check INR, lik laxmi discharge in the next 24 to 48 hours once hemoglobin is stable and heart rate is better controldawit DENISE Voice ID: [id number] Report ID: [id number]
[2018-05-13] MEDS: ATORVASTATIN 20 MG TAB PO SCH (20:25)
[2018-05-13] MEDS: TAMSULOSIN 0.4 MG SR CAP PO SCH (20:25)
[2018-05-14 04:44] LABS: Potassium 3.4 mmol/L (3.5-5.1)
[2018-05-14 06:02] VITALS: BMI 26.9
[2018-05-14 06:10] LABS: Magnesium 2.3 mg/dL (1.8-2.4)
[2018-05-14] MEDS: INSULIN -REGULAR HUMAN 50 UNIT/0.5 ML ML SQ SCH ×2 (07:30→11:30)
[2018-05-14] MEDS: METOPROLOL TAR 50 MG TAB PO SCH (08:56)
[2018-05-14] MEDS: FUROSEMIDE 40 MG TABLET PO SCH (08:57)
[2018-05-14] MEDS: AMLODIPINE 10 MG TAB PO SCH (08:57)
[2018-05-14] MEDS: ALLOPURINOL 300 MG TAB PO SCH (08:59)
[2018-05-14] MEDS: HYDRALAZINE HCL 25 MG TABLET PO SCH ×2 (08:59→13:45)
[2018-05-14] MEDS: LOSARTAN POTASSIUM 50 MG TABLET PO SCH (09:00)
[2018-05-14] MEDS ORDERED: POTASSIUM CL SA 10 MEQ TAB PO ONE (09:00)
[2018-05-14] MEDS: MEMANTINE PO SCH (09:00)
[2018-05-14] MEDS: DONEPEZIL PO SCH (09:00)
[2018-05-14] MEDS: ASPIRIN EC 81 MG TAB PO SCH (09:01)
[2018-05-14] MEDS: POTASSIUM CL SA 10 MEQ TAB PO SCH (09:04)
[2018-05-14 09:19] VITALS: O2SAT 97
[2018-05-14 13:14] VITALS: BP 123/79; TEMP 97.3
[2018-05-14] MEDS ORDERED: WARFARIN SODIUM 7.5 MG TAB PO SCH (17:00)
== END 2018-05-14 14:18 | disposition home or self-care (01) | DRG 309 ==
LOC: ER 16:04 → ERHOLD 17:20 → 4TH 20:00
PROVIDERS: ADMIT Family Medicine; ATTEND Family Medicine
DX: I48.2 Chronic atrial fibrillation (principal); J96.10 Chronic respiratory failure, unspecified whether with hypoxia or hypercapnia; F02.81 Dementia in other diseases classified elsewhere, unspecified severity, with behavioral disturbance; I50.32 Chronic diastolic (congestive) heart failure; Z66 Do not resuscitate; Z79.01 Long term (current) use of anticoagulants; E87.8 Other disorders of electrolyte and fluid balance, not elsewhere classified; E87.6 Hypokalemia; E83.42 Hypomagnesemia; D50.8 Other iron deficiency anemias; E11.65 Type 2 diabetes mellitus with hyperglycemia; J44.9 Chronic obstructive pulmonary disease, unspecified; J32.9 Chronic sinusitis, unspecified; G47.33 Obstructive sleep apnea (adult) (pediatric); G30.0 Alzheimer's disease with early onset; I11.0 Hypertensive heart disease with heart failure; I27.20 Pulmonary hypertension, unspecified; D72.828 Other elevated white blood cell count; I47.0 Re-entry ventricular arrhythmia
CPT/HCPCS: 36415; 70450; 71045; 80048; 80053; 80076; 81003; 82274; 82728; 82962; 83540; 83735; 83880; 84100; 84132; 84466; 84484; 85014; 85018; 85025; 85610; 93005; 94760; 96374; 97163; 99285; J0696; J3475

== ENCOUNTER 2018-05-16 09:35 | Inpatient (IN) | payer OTHER, MEDICARE ==
[2018-05-16] MEDS ORDERED: METOPROLOL XL 50 MG TAB PO ONE (09:56)
[2018-05-16 10:12] LABS: Absolute Lymphocytes (CBC) 1.2 K/uL (0.7-4.9); Absolute Monocytes 1.2 K/uL (0.1-1.3); Absolute Neutrophil 14.5 K/uL (1.8-8.0); Basophils % 0.6 % (0-1.3); Eosinophils % 1.3 % (0-4.4); Hematocrit 27.1 % (39.6-49.0); Lymphocytes % 6.7 % (15.3-44.8); MCH 24.7 pg (27.0-35.0); MCV 80.4 fL (80-100); MPV 7.6 fL (7.6-11.3); Monocytes % 6.7 % (3.3-12.3); RBC Red Blood Cell Count 3.37 M/uL (4.33-5.43)
--- NOTE | 2018-05-16 10:24 | RAD REPORT ---
EXAM DESCRIPTION: RAD - Chest Single View - 05/16/2018 10:18 am CLINICAL HISTORY: DYSPNEA Chest pain. COMPARISON: Chest Single View dated 05/11/2018; Chest Pa And Lat (2 Views) dated 07/20/2017; Chest S kurt View dated 06/21/2017 FINDINGS: Portable technique limits examination quality. Mild interstitial pulmonary edema is seen. The heart is upper limit normal in size. No displaced frac tures. IMPRESSION: Mild CHF versus volume overload pattern suspected.
[2018-05-16 10:37] LABS: BUN Blood Urea Nitrogen 15 mg/dL (7-18); Bicarbonate 27 mmol/L (21-32); Glucose Level 186 mg/dL (74-106); Magnesium 2.2 mg/dL (1.8-2.4); NT PRO-BNP 2396 pg/mL (<450); Potassium 3.4 mmol/L (3.5-5.1); Sodium Level 141 mmol/L (136-145); Troponin (Emerg Dept Use Only) < 0.02 ng/mL (0.0-0.045)
--- NOTE | 2018-05-16 10:47 | EDPHYS ---
Physician Documentation [facility] Name: Bobby Mcdaniel Jr Age: 78 yrs Sex: Male : 1940 Arrival Date: 05/16/2018 Time: 09:36 Bed 7 Private MD: Sandra Yi R ED Physician Kenneth Coy HPI: 05/16 09:47 This 78 yrs old Male presents to ER via Wheelchair with complaints of rn Breathing Difficulty. 09:47 The patient has shortness of breath at rest. Onset: The symptoms/episode began/occurred rn last night. Duration: The symptoms are continuous. The patient's shortness of breath is aggravated by exertion, light activity, supine position, talking, walking. Severity of symptoms: At their worst the symptoms were moderate in the emergency department the symptoms are unchanged. The patient has experienced similar episodes in the past. The patient has been recently been admitted at [facility]. Reports admitted to this hospital recently, admitted for CHF, felt better, last night noticed some difficulty breathing that got worse this AM, taking his meds, no fever. . Historical: - Allergies: 09:42 Lorazepam; hb 09:44 tramadol; hb 09:44 Codeine; hb - Home Meds: 09:44 allopurinol 300 mg Oral tab 0.5 tab [Active]; amlodipine 10 mg tab 1 tab once daily hb [Active]; aspirin 81 mg Oral TbEC 1 tab once daily [Active]; atorvastatin 20 mg Oral tab 1 tab once daily [Active]; fluticasone 50 mcg/actuation nasal spsn 1 spray 2 times per day [Active]; folic acid 800 mcg Oral tab 1 tab once daily [Active]; hydralazine 50 mg Oral tab 1 tab daily [Active]; Lasix 40 mg Oral tab [Active]; losartan 100 mg Oral tab 1 tab once daily [Active]; meloxicam 7.5 mg Oral tab 1 tab once daily [Active]; metformin 500 mg Oral tab 2 tabs 2 times per day [Active]; metoprolol tartrate 50 mg Oral tab 1 tab once daily [Active]; Namzaric 28-10 mg Oral CSpX [Active]; potassium chloride 10 mEq Oral cpER 1 cap once daily [Active]; tamsulosin 0.4 mg Oral cp24 1 cap once daily [Active]; vitamin b12 shot [Active]; Zyrtec 10 mg Oral tab 1 tab once daily [Active]; warfarin 5 mg Oral tab 1 tab once daily [Active]; - PMHx: 09:44 COPD; Atrial Fib; CHF; Dementia; Diabetes - NIDDM; Gout; hb - Immunization history:: Adult Immunizations up to date. - Social history:: Smoking status: Patient/guardian denies using tobacco. - Ebola Screening: : No symptoms or risks identified at this time. - Family history:: not pertinent. - Hospitalizations: : The patient was recently seen at [facility]. ROS: 09:47 Constitutional: Negative for fever, chills, and weight loss, Eyes: Negative for injury, rn pain, redness, and discharge, Neck: Negative for injury, pain, and swelling, Cardiovascular: Negative for chest pain, and edema Respiratory: Negative for wheezing, and pleuritic chest pain, Abdomen/GI: Negative for abdominal pain, nausea, vomiting, diarrhea, and constipation, MS/Extremity: Negative for injury and deformity, Skin: Negative for injury, rash, and discoloration, Neuro: Negative for headache, weakness, numbness, tingling, and seizure. Exam: 09:47 Constitutional: This is a well developed, well nourished patient who is awake, alert, rn + mild to moderate respiratory distress Head/Face: Normocephalic, atraumatic. ENT: dry MM, no stridor Cardiovascular: tachycardic, irregular, no murmur Respiratory: + moderate tachypnea with pursed-lip breathing and poor inspiratory air flow, speaks 3 word sentences Abdomen/GI: soft, non-tender MS/ Extremity: Pulses equal, no cyanosis. Neurovascular intact. Full, normal range of motion. Equal circumference. Neuro: Awake and alert, GCS 15, oriented to person, place, time, and situation. Cranial nerves II-XII grossly intact. Motor strength 5/5 in all extremities. Sensory grossly intact. Vital Signs: 09:41 BP 156 / 92; Pulse 154; Resp 32; Temp 98.0(O); Pulse Ox 80% on 2 lpm NC; dh3 09:50 Pulse Ox 94% on 4 lpm NC; sg 10:47 BP 141 / 103; Pulse 142 MON; Resp 30 S; Pulse Ox 100% on 35% BiPAP; sg 11:56 BP 138 / 94; Pulse 124; Resp 28 S; Pulse Ox 99% on BiPAP; sg 12:24 BP 123 / 60; Pulse 130; Resp 17; Pulse Ox 96% on BiPAP; sg 13:30 BP 116 / 95; Pulse 128; Resp 32; Pulse Ox 98% on BiPAP; sv 10:47 A fib sg MDM: 09:38 Patient medically screened. rn 10:45 Differential diagnosis: Anemia Bronchitis CHF exacerbation, Myocardial Infarction rn pneumonia, Pneumothorax pulmonary edema, reactive airway disease. Data reviewed: vital signs, nurses notes, lab test result(s), EKG, radiologic studies, plain films, and as a result, I will admit patient. Counseling: I had a detailed discussion with the patient and/or guardian regarding: the historical points, exam findings, and any diagnostic results supporting the discharge/admit diagnosis, lab results, radiology results, the need for further work-up and treatment in the hospital. Response to treatment: the patient's symptoms have mildly improved after treatment, and as a result, I will admit patient. Admission orders: after a detailed discussion of the patient's condition and case, the admit orders are written by me. 05/16 09:45 Order name: Blood Culture Adult (2) rn 05/16 09:45 Order name: BMP; Complete Time: 10:39 rn 05/16 09:45 Order name: CBC with Diff; Complete Time: 10:34 rn 05/16 09:45 Order name: Magnesium; Complete Time: 10:39 rn 05/16 09:45 Order name: NT PRO-BNP; Complete Time: 10:39 rn 05/16 09:45 Order name: Troponin (emerg Dept Use Only); Complete Time: 10:39 rn 05/16 09:45 Order name: XRAY CXR (1 view); Complete Time: 10:34 rn 05/16 09:46 Order name: BIPAP rn 05/16 14:17 Order name: Troponin (emerg Dept Use Only) 05/16 14:50 Order name: Troponin (Emerg Dept Use Only) EDMS 05/16 09:45 Order name: EKG; Complete Time: 09:46 rn 05/16 09:45 Order name: Cardiac monitoring; Complete Time: 09:50 rn 05/16 09:45 Order name: EKG - Nurse/Tech; Complete Time: 09:54 rn 05/16 09:45 Order name: IV Saline Lock; Complete Time: 09:54 rn 05/16 09:45 Order name: Labs collected and sent; Complete Time: 09:54 rn 05/16 09:45 Order name: O2 Per Protocol; Complete Time: 09:50 rn 05/16 09:45 Order name: O2 Sat Monitoring; Complete Time: 09:50 rn Administered Medications: 09:53 Drug: Metoprolol TARTRATE (Lopressor) 50 mg Route: PO; sg 10:45 Drug: Lopressor 5 mg Route: IVP; Site: left antecubital; sg 11:32 Drug: Lopressor 5 mg Route: IVP; Site: left antecubital; hb 11:45 Drug: Lasix 40 mg Route: IVP; Site: left antecubital; sg 11:58 Drug: Lopressor 5 mg {Note: BP 138/94, HR 140.} Route: IVP; Site: left antecubital; hb Disposition: 10:45 Critical Care:. rn Disposition: 05/16/18 10:46 Hospitalization ordered by Mini Munguia for Inpatient Admission. Preliminary diagnosis are Acute pulmonary edema, Unspecified atrial fibrillation, Hypoxemia. - Bed requested for Intensive Care Unit. - Status is Inpatient Admission. hb - Condition is Stable. - Problem is new. - Symptoms have improved. UTI on Admission? No Critical care time excluding procedures: 10:45 Critical care time: Bedside Care: 25 minutes, Consultation: 5 minutes, Family rn Intervention: 5 minutes. Total time: 35 minutes Signatures: Dispatcher [employer] Emely Cherry RN RN dw Gay, Steven, RN RN sg Nieto, Roman, MD MD rn Baxter, Heather, RN RN hb Corrections: (The following items were deleted from the chart) 11:39 10:46 Hospitalization Ordered by Mini Munguia MD for Inpatient Admission. Preliminary rn diagnosis is Acute pulmonary edema; Unspecified atrial fibrillation; Hypoxemia. Bed requested for Telemetry/MedSurg (Inpatient). Status is Inpatient Admission. Condition is Stable. Problem is new. Symptoms have improved. UTI on Admission? No. rn 13:16 11:39 05/16/2018 10:46 Hospitalization Ordered by Mini Munguia MD for Inpatient dw Admission. Preliminary diagnosis is Acute pulmonary edema; Unspecified atrial fibrillation; Hypoxemia. Bed requested for Intensive Care Unit. Status is Inpatient Admission. Condition is Stable. Problem is new. Symptoms have improved. UTI on Admission? No. rn 14:51 13:16 05/16/2018 10:46 Hospitalization Ordered by Mini Munguia MD for Inpatient Admission. Preliminary diagnosis is Acute pulmonary edema; Unspecified atrial fibrillation; Hypoxemia. Bed requested for Intensive Care Unit. Status is Inpatient Admission. Condition is Stable. Problem is new. Symptoms have improved. UTI on Admission? No. dw
--- NOTE | 2018-05-16 10:47 | ER ---
Nurse's Notes [facility] Name: Bobby Mcdaniel Jr Age: 78 yrs Sex: Male : 1940 Arrival Date: 05/16/2018 Time: 09:36 Bed 7 Private MD: Sandra Yi R Diagnosis: Acute pulmonary edema;Unspecified atrial fibrillation;Hypoxemia Presentation: 05/16 09:44 Presenting complaint: states: SOB and nonproductive cough x 2 days, worse this hb upon waking today. On 2L home O2. Transition of care: patient was not received from another setting of care. Onset of symptoms was May 16, 2018. Risk Assessment: Do you want to hurt yourself or someone else? Patient reports no desire to harm self or others. Care prior to arrival: None. 09:44 Method Of Arrival: Wheelchair hb 09:44 Acuity: RAYO 2 hb 09:45 Initial Sepsis Screen: Does the patient meet any 2 criteria? RR > 20 per min. HR > 90 sg bpm. Yes Does the patient have a suspected source of infection? No. Patient's initial sepsis screen is negative. Triage Assessment: 09:40 General: Appears in no apparent distress. uncomfortable, well groomed, well developed, sg well nourished, Behavior is calm, cooperative, appropriate for age. Respiratory: Reports shortness of breath labored breathing Onset: The symptoms/episode began/occurred gradually, the patient has moderate shortness of breath. Historical: - Allergies: 09:42 Lorazepam; hb 09:44 tramadol; hb 09:44 Codeine; hb - Home Meds: 09:44 allopurinol 300 mg Oral tab 0.5 tab [Active]; amlodipine 10 mg tab 1 tab once daily hb [Active]; aspirin 81 mg Oral TbEC 1 tab once daily [Active]; atorvastatin 20 mg Oral tab 1 tab once daily [Active]; fluticasone 50 mcg/actuation nasal spsn 1 spray 2 times per day [Active]; folic acid 800 mcg Oral tab 1 tab once daily [Active]; hydralazine 50 mg Oral tab 1 tab daily [Active]; Lasix 40 mg Oral tab [Active]; losartan 100 mg Oral tab 1 tab once daily [Active]; meloxicam 7.5 mg Oral tab 1 tab once daily [Active]; metformin 500 mg Oral tab 2 tabs 2 times per day [Active]; metoprolol tartrate 50 mg Oral tab 1 tab once daily [Active]; Namzaric 28-10 mg Oral CSpX [Active]; potassium chloride 10 mEq Oral cpER 1 cap once daily [Active]; tamsulosin 0.4 mg Oral cp24 1 cap once daily [Active]; vitamin b12 shot [Active]; Zyrtec 10 mg Oral tab 1 tab once daily [Active]; warfarin 5 mg Oral tab 1 tab once daily [Active]; - PMHx: 09:44 COPD; Atrial Fib; CHF; Dementia; Diabetes - NIDDM; Gout; hb - Immunization history:: Adult Immunizations up to date. - Social history:: Smoking status: Patient/guardian denies using tobacco. - Ebola Screening: : No symptoms or risks identified at this time. - Family history:: not pertinent. - Hospitalizations: : The patient was recently seen at [facility]. Screenin:44 Abuse screen: Denies threats or abuse. Denies injuries from another. Nutritional hb screening: No deficits noted. Tuberculosis screening: No symptoms or risk factors identified. Fall Risk Total Ford Fall Scale indicates High Risk Score (45 or more points). Fall prevention measures have been instituted. Side Rails Up X 2 Frequent Obs/Assessments Occuring Family Present and informed to notify staff if the need to leave the bedside As available patient and family educated on Fall Prevention Program and Strategies. Assessment: 09:40 General: Appears in no apparent distress. comfortable, well groomed, well developed, sg well nourished, Behavior is cooperative, appropriate for age. Pain: Denies pain. Neuro: Level of Consciousness is awake, obeys commands, confused, Oriented to person, time, situation, Superintendent Meter Tests are equal bilaterally Moves all extremities. Speech is normal, Facial symmetry appears normal. Cardiovascular: Patient's skin is warm and dry. Chest pain is denied. Respiratory: Airway is patent Respiratory effort is even, labored, Respiratory pattern is regular, tachypnea. GI: Abdomen is round non-distended, Bowel sounds present X 4 quads. : No signs and/or symptoms were reported regarding the genitourinary system. EENT: No signs and/or symptoms were reported regarding the EENT system. Derm: Skin is intact, is thin, Skin is dry, Skin is pale, Skin temperature is warm. Musculoskeletal: No signs and/or symptoms reported regarding the musculoskeletal system. 09:40 Respiratory: Breath sounds are coarse Breath sounds with crackles. sg 09:55 Reassessment: Ada RT at bedside for BiPap per ERP order, pt reports wearing CPAP at sg night and using home 02 every day via NC. 12:30 Reassessment: Pt cleaned of urine incontinence, taken out of clothes placed in a gown. sv Pull up brief placed on pt, urinal at the bedside and pt repositioned higher in the bed. Vital Signs: 09:41 BP 156 / 92; Pulse 154; Resp 32; Temp 98.0(O); Pulse Ox 80% on 2 lpm NC; dh3 09:50 Pulse Ox 94% on 4 lpm NC; sg 10:47 BP 141 / 103; Pulse 142 MON; Resp 30 S; Pulse Ox 100% on 35% BiPAP; sg 11:56 BP 138 / 94; Pulse 124; Resp 28 S; Pulse Ox 99% on BiPAP; sg 12:24 BP 123 / 60; Pulse 130; Resp 17; Pulse Ox 96% on BiPAP; sg 13:30 BP 116 / 95; Pulse 128; Resp 32; Pulse Ox 98% on BiPAP; sv 10:47 A fib sg ED Course: 09:36 Patient arrived in ED. as 09:36 Sandra Yi MD is Private Physician. as 09:38 Kenneth Coy MD is Attending Physician. rn 09:40 Patient has correct armband on for positive identification. Bed in low position. Call light in reach. Side rails up X2. environmental monitoring specialist on. Pulse ox on. NIBP on. Warm blanket given. Head of bed elevated. 09:42 Arm band placed on right wrist. hb 09:44 Triage completed. hb 09:47 Dinesh Dyson, RN is Primary Nurse. sg 09:55 EKG done, by electrical assembly technician. reviewed by Kenneth Coy MD. at1 09:59 Initial lab(s) drawn, by me, sent to lab. First set of blood cultures drawn by me. dh3 09:59 Inserted saline lock: 18 gauge in left antecubital area, using aseptic technique. Blood formerly [facility] collected. 10:18 XRAY CXR (1 view) In Process Unspecified. EDMS 10:26 Second set of blood cultures drawn by me. dh3 10:46 Mini Munguia MD is Hospitalizing Provider. rn 14:20 No provider procedures requiring assistance completed. Patient admitted, IV remains in sg place. intact, No redness/swelling at site. 14:22 Repeat lab(s) drawn. by me, sent to lab. 3 Administered Medications: 09:53 Drug: Metoprolol TARTRATE (Lopressor) 50 mg Route: PO; sg 10:45 Drug: Lopressor 5 mg Route: IVP; Site: left antecubital; sg 11:32 Drug: Lopressor 5 mg Route: IVP; Site: left antecubital; hb 11:45 Drug: Lasix 40 mg Route: IVP; Site: left antecubital; sg 11:58 Drug: Lopressor 5 mg {Note: BP 138/94, HR 140.} Route: IVP; Site: left antecubital; hb Intake: 15:47 IV: 0ml; Total: 0ml. sg Output: 15:47 Urine: 500ml (Voided); Total: 500ml. sg Outcome: 10:46 Decision to Hospitalize by Provider. rn 14:25 Admitted to ICU accompanied by nurse, accompanied by tech, family with patient, via sg stretcher, room 2, with oxygen, with chart, Report called to bedside to Rosanna FORBES 14:25 Condition: stable 14:25 Instructed on the need for admit, safety practices, Demonstrated understanding of instructions. 14:51 Patient left the ED. hb Signatures: Dispatcher [employer] EDUT Lorena Martinez RN RN sv Gay, Steven, RN RN sg Martinez, Amelia as Nieto, Roman, MD MD rn Gonzales, Amanda, automotive collision repair instructor EKG Tat1 Radha Limon RN RN hb Herrera, Deanna 3 Corrections: (The following items were deleted from the chart) 09:42 09:41 BP 156 / 92; Pulse 154bpm; Resp 32bpm; Pulse Ox 80% 2 lpm Nasal Cannula; hb dh3 10:04 10:03 Inserted saline lock: 18 gauge in left antecubital area, using aseptic technique. dh3 Blood collected. dh3
[2018-05-16] MEDS ORDERED: METOPROLOL TARTRATE 5 MG/5 ML INJ IV ONE ×3 (10:48→12:03)
[2018-05-16] MEDS ORDERED: FUROSEMIDE 40 MG/4 ML VIAL ONE (10:56)
[2018-05-16] MEDS ORDERED: ONDANSETRON 4 MG/2 ML VIAL IV PRN (11:46)
[2018-05-16] MEDS ORDERED: ACETAMINOPHEN 500 MG TAB PO PRN (11:46)
[2018-05-16 15:01] VITALS: BMI 27.0
[2018-05-16] MEDS ORDERED: D50W 25 GM/50 ML SYRINGE IV PRN (15:32)
[2018-05-16] MEDS ORDERED: GLUCAGON 1 MG/VIAL IM PRN (15:32)
[2018-05-16] MEDS: ALLOPURINOL 300 MG TAB PO SCH (15:49)
[2018-05-16] MEDS: INSULIN -REGULAR HUMAN 50 UNIT/0.5 ML ML SQ SCH ×2 (15:49→20:08)
[2018-05-16] MEDS: FUROSEMIDE 40 MG/4 ML VIAL IV SCH (16:16)
[2018-05-16] MEDS: Levofloxacin500mg IV 500 MG/100 ML BAG IV SCH (16:16)
--- NOTE | 2018-05-16 16:20 | P.HP ---
Certification for Inpatient Patient admitted to: Inpatient With expected LOS: >2 Midnights Patient will require the following post-hospital care: None Practitioner: I am a practitioner with admitting privileges, knowledge of patient current condition, hospital course, and medical plan of care. Services: Services provided to patient in accordance with Admission requirements found in Title 42 Section 412.3 of the Code of Federal Regulations Patient History Date of Service: 05/16/18 Primary Care Provider: Dr Jiménez - PCP, Dr Saucedo - cardiology, Dr kay - Pulmonology Reason for admission: ARF History of Present Illness: The patient is a 78-year-old male with past medical history of dementia congestive heart failure; atrial fibrillation, on Coumadin; insulin-dependent diabetes; COPD with oxygen at night only; hypertension; obstructive sleep apnea on CPAP, who was in his usual state of health until this AM prior to admission when the patient started having shortness of breath. The patient has been using his oxygen more during the daytime as well for past couple of days, usually only uses it at night. His oxygen saturation this morning was 79-80% without oxygen. The patient's symptoms are constant, moderate, progressively worsening. The patient was recently admitted to the hospital for altered mental status and was found to have infection which caused his altered mental status along with atrial fibrillation with RVR. The patient was evaluated in the ER lab work and imaging was done. The patient was found to be in atrial fibrillation with RVR. His lab work found multiple electrolyte abnormalities including hypokalemia and hypomagnesemia. The patient' s chest x-ray showed mild CHF volume overload pattern. The patient was then referred for admission. And seen in the ER patient was in AFib with RVR with heart rate of 120-130 on BiPAP. Pt was lethargic and somnolent. Allergies codeine Adverse Reaction (Verified 05/11/18 21:56) see comment lorazepam [From Ativan] Adverse Reaction (Verified 05/11/18 21:56) see comment tramadol Adverse Reaction (Verified 05/11/18 21:56) see comment Home Medications: Allopurinol [Zyloprim*] 150 mg PO DAILY 06/21/17 Aspirin [Aspirin EC 81 MG] 81 mg PO DAILY 06/21/17 Atorvastatin Calcium [Lipitor*] 20 mg PO BEDTIME 06/21/17 Fluticasone [Flonase 50MCG Nasal Supai*] 2 sprays NS DAILY PRN 06/21/17 Folic Acid 0.8 mg PO DAILY 06/21/17 Furosemide [Lasix*] 40 mg PO DAILY 06/21/17 Hydralazine HCl [Apresoline] 1 tab PO DAILY 06/21/17 Losartan Potassium [Cozaar] 100 mg PO DAILY 06/21/17 Memantine HCl/Donepezil HCl [Namzaric 28 mg-10 mg Capsule] 1 tab PO DAILY Metformin HCl [Metformin HCl ER] 1,000 mg PO BID 06/21/17 Metoprolol Tartrate [Lopressor*] 50 mg PO DAILY 06/21/17 Potassium Chloride 10 meq PO DAILY 06/21/17 Tamsulosin [Flomax*] 0.4 mg PO BEDTIME 06/21/17 Amlodipine [Norvasc*] 10 mg PO DAILY 05/12/18 Cyanocobalamin [Vitamin B-12*] 1 mcg IM SEECOM 05/12/18 Meloxicam 7.5 mg PO DAILY 05/12/18 Cetirizine HCl [Zyrtec] 10 mg PO DAILY 05/16/18 Warfarin Sodium 5 mg PO DAILY 05/16/18 - Past Medical/Surgical History Has patient received pneumonia vaccine in the past: Yes Diabetic: Yes -: htn -: DM -: COPD -: CHF -: Afib -: dementia -: sleep apnea - Family History Mother -: Heart disease, Hypertension Brother -: Lung disease Sister -: Heart disease - Social History Smoking Status: Never smoker Alcohol use: No CD- Drugs: No Caffeine use: Yes Place of Residence: Home Review of Systems 10-point ROS is otherwise unremarkable Physical Examination - Vital Signs Temperature: 96.9 F Blood Pressure: 143/89 Pulse: 128 Respirations: 37 Pulse Ox (%): 94 - Physical Exam General: Demented, Acute distress, Other (Lethargic and Solmonent. Ill Appearing ) HEENT: Atraumatic, PERRLA, EOMI, Sclerae nonicteric Neck: 2+ carotid pulse no bruit, No LAD, JVD distended Respiratory: Normal air movement, Crackles/rales, Expiratory wheezes, Inspiratory wheezes Cardiovascular: Normal S1 S2, Irregular heart rate/rhythm Gastrointestinal: Normal bowel sounds, Soft and benign, Non-distended, No tenderness Musculoskeletal: No tenderness Integumentary: No rashes Neurological: Abnormal speech, Abnormal strength, Abnormal affect, Dementia Lymphatics: No axilla or inguinal lymphadenopathy - Studies Laboratory Data (last 24 hrs) 05/16/18 09:59: WBC 17.2 H D, Hgb 8.3 L, Hct 27.1 L D, Plt Count 406 D 05/16/18 09:59: Sodium 141, Potassium 3.4 L, BUN 15, Creatinine 1.20, Glucose 186 H, Magnesium 2.2 Assessment and Plan - Problems (Diagnosis) (1) Acute respiratory failure Onset Date: 06/22/17 Current Visit: No Plan: Acute respiratory failure most likely secondary to AFib with RVR versus CHF versus COPD exacerbation -the currently patient is on BiPAP. Will try to wean as tolerated -patient is currently DNR DNI. -chest x-ray consistent with mild CHF versus volume overload pattern -the IV Lasix 40 mg b.i.d. Qualifiers: Respiratory failure complication: hypoxia Qualified Code(s): J96.01 - Acute respiratory failure with hypoxia (2) Atrial fibrillation with RVR Onset Date: 05/14/18 Current Visit: No Status: Acute Plan: Currently patient is in atrial fibrillation with RVR heart rate of 120-130 -started back on metoprolol and Coumadin for anti coagulation -currently on BiPAP as well (3) CHF (congestive heart failure) Onset Date: 05/14/18 Current Visit: No Status: Acute Plan: Acute on chronic congestive heart failure -x-ray was consistent with mild CHF and volume overload pattern -IV Lasix 40 mg b.i.d. at this time -cardiology consulted -will repeat echo Qualifiers: Heart failure type: unspecified Heart failure chronicity: acute on chronic Qualified Code(s): I50.9 - Heart failure, unspecified (4) COPD (chronic obstructive pulmonary disease) Onset Date: 05/14/18 Current Visit: No Status: Acute Plan: COPD with acute exacerbation -Duonebs, steroids, BiPAP at this time -pulmonology will be consulted Qualifiers: COPD type: COPD with acute exacerbation Qualified Code(s): J44.1 - Chronic obstructive pulmonary disease with (acute) exacerbation (5) Diabetes mellitus, type II Onset Date: 05/14/18 Current Visit: No Status: Chronic Plan: Insulin sliding scale and ACHS Qualifiers: Diabetes mellitus usp insulin use: without termite inspector use Diabetes mellitus complication status: without complication Qualified Code(s): E11.9 - Type 2 diabetes mellitus without complications (6) Essential hypertension Onset Date: 05/14/18 Current Visit: No Status: Chronic Plan: Restart home medication (7) JARED (obstructive sleep apnea) Onset Date: 05/14/18 Current Visit: No Status: Chronic Plan: CPAP at night (8) Alzheimer's dementia Onset Date: 05/14/18 Current Visit: No Status: Chronic Qualifiers: Alzheimer's disease onset: early-onset Dementia behavioral disturbance: with behavioral disturbance Qualified Code(s): G30.0 - Alzheimer's disease with early onset; F02.81 - Dementia in other diseases classified elsewhere with behavioral disturbance Discharge Plan: Other Plan to discharge in: 72 Hours - Advance Directives Does patient have a Living Will: Yes Does patient have a Durable POA for Healthcare: No - Code Status/Comfort Care Code Status Assessed: Yes Code Status: Do Not Resuscitate Comfort Measures: Hospice Care Critical Care: Yes
[2018-05-16] MEDS ORDERED: IPRATROPIUM BROM 0.5MG/2.5ML NEB PRN (16:22)
[2018-05-16] MEDS ORDERED: LEVALBUTEROL 0.63 MG/3 ML NEB NEB PRN (16:22)
[2018-05-16 16:25] LABS: Urine Appearance CLEAR; Urine Bilirubin NEGATIVE (NEG); Urine Blood NEGATIVE (NEG); Urine Color YELLOW; Urine Glucose NEGATIVE (NEG); Urine Protein NEGATIVE (NEG); Urine Specific Gravity <=1.005 (1.005-1.030); Urine Urobilinogen 0.2 mg/dL (0.2-1.0)
[2018-05-16 16:26] LABS: Urine Microscopic Reflex NO UMIC
[2018-05-16] MEDS ORDERED: METOPROLOL TARTRATE 5 MG/5 ML INJ IV PRN (17:59)
[2018-05-16] MEDS ORDERED: METOPROLOL TARTRATE 5 MG/5 ML INJ IV STA (17:59)
[2018-05-16] MEDS: prednisoLONE 15 MG/5 ML OSYR PO SCH (20:15)
[2018-05-16] MEDS: TAMSULOSIN 0.4 MG SR CAP PO SCH (20:15)
[2018-05-16] MEDS: ATORVASTATIN 20 MG TAB PO SCH (20:15)
[2018-05-17 06:13] LABS: Absolute Lymphocytes (CBC) 1.1 K/uL (0.7-4.9); Absolute Monocytes 0.9 K/uL (0.1-1.3); Absolute Neutrophil 13.1 K/uL (1.8-8.0); Basophils % 0.4 % (0-1.3); Eosinophils % 0.7 % (0-4.4); Hematocrit 25.9 % (39.6-49.0); Lymphocytes % 7.5 % (15.3-44.8); MCH 25.3 pg (27.0-35.0); MCV 79.3 fL (80-100); MPV 7.5 fL (7.6-11.3); RBC Red Blood Cell Count 3.27 M/uL (4.33-5.43)
[2018-05-17 06:36] LABS: Albumin 2.8 g/dL (3.4-5.0); Bilirubin Total 0.6 mg/dL (0.2-1.0); Magnesium 2.3 mg/dL (1.8-2.4); Phosphorus 3.5 mg/dL (2.5-4.9); Potassium 3.2 mmol/L (3.5-5.1); Protein, Total 6.7 g/dL (6.4-8.2); Thyroid Stimulating Hormone 1.23 uIU/mL (0.360-3.740)
[2018-05-17] MEDS ORDERED: KCL 20 MEQ/100 mL IVPB 20 MEQ/100 ML BAG IV SCH (07:00)
[2018-05-17] MEDS: INSULIN -REGULAR HUMAN 50 UNIT/0.5 ML ML SQ SCH ×5 (07:30→22:14)
--- NOTE | 2018-05-17 07:31 | EKG ---
Test Date: 2018-05-16 Test Time: 09:45:30 Customer Liaison: PATRICK MEASUREMENT RESULTS: Intervals: Rate: 158 [place]: QRSD: 86 QT: 328 QTc: 531 [place]: P: [place]: QRS: -60 T: 89 INTERPRETIVE STATEMENTS: Atrial fibrillation with rapid ventricular response Left axis deviation Nonspecific ST and T wave abnormality Abnormal ECG Compared to ECG 05/11/2018 16:30:11 ST (T wave) deviation now present Electronically Signed On 05-17-18 07:28:00 CDT by Bienvenido Thomas
[2018-05-17] MEDS ORDERED: POTASSIUM CL SA 10 MEQ TAB PO ONE (08:25)
[2018-05-17] MEDS ORDERED: HOME MED 1 EA UNK (Cetirizine Hcl [Zyrtec] 10 MG) PO SCH (09:00)
[2018-05-17] MEDS ORDERED: LOSARTAN POTASSIUM 50 MG TABLET PO SCH ×2 (09:00→12:00)
[2018-05-17] MEDS ORDERED: HOME MED 1 EA UNK (Losartan Potassium [Cozaar] 100 MG) PO SCH (09:00)
[2018-05-17] MEDS ORDERED: HYDRALAZINE HCL 25 MG TABLET PO SCH ×2 (09:00→17:00)
[2018-05-17] MEDS ORDERED: HOME MED 1 EA UNK (Folic Acid [Folic Acid] 0.8 MG) PO SCH (09:00)
[2018-05-17] MEDS ORDERED: HOME MED 1 EA UNK (Hydralazine Hcl [Apresoline] 1 TAB) PO SCH (09:00)
[2018-05-17] MEDS ORDERED: CYANOCOBALAMIN 1000MCG/ML INJ IM SCH ×2 (09:00→10:00)
[2018-05-17] MEDS: CETIRIZINE HCL 5 MG TABLET PO SCH (09:00)
[2018-05-17] MEDS: ALLOPURINOL 300 MG TAB PO SCH (09:06)
[2018-05-17] MEDS: prednisoLONE 15 MG/5 ML OSYR PO SCH ×3 (09:07→21:04)
[2018-05-17] MEDS: WARFARIN SODIUM 5 MG TAB PO SCH (09:07)
[2018-05-17] MEDS: ASPIRIN EC 81 MG TAB PO SCH (09:08)
[2018-05-17] MEDS: METOPROLOL TAR 50 MG TAB PO SCH (09:09)
[2018-05-17] MEDS: FOLIC ACID 1 MG TABLET PO SCH (09:09)
[2018-05-17] MEDS: AMLODIPINE 10 MG TAB PO SCH (09:10)
[2018-05-17] MEDS: FUROSEMIDE 40 MG/4 ML VIAL IV SCH ×2 (09:11→17:08)
--- NOTE | 2018-05-17 13:25 | P.PN ---
Subjective Date of Service: 05/17/18 Primary Care Provider: Dr Jiménez - PCP, Dr Saucedo - cardiology, Dr kay - Pulmonology Chief Complaint: ARF Patient seen and examined at bedside with RN. Chart reviewed. Case discussed with pulmonology. Currently patient is weaned off of BiPAP and is doing well overall. Review of Systems 10-point ROS is otherwise unremarkable Physical Examination - Vital Signs Temperature: 98.7 F Blood Pressure: 112/60 Pulse: 90 Respirations: 20 Pulse Ox (%): 98 - Physical Exam General: Alert, In no apparent distress HEENT: Atraumatic, PERRLA, EOMI Neck: Supple, JVD not distended Respiratory: Normal air movement, Expiratory wheezes, Inspiratory wheezes Cardiovascular: Normal S1 S2, Irregular heart rate/rhythm Gastrointestinal: Normal bowel sounds, No tenderness Musculoskeletal: No tenderness Integumentary: No rashes Neurological: Normal speech, Normal tone, Normal affect Lymphatics: No axilla or inguinal lymphadenopathy - Studies Medications List Reviewed: Yes Assessment And Plan - Current Problems (Diagnosis) (1) Acute respiratory failure Onset Date: 06/22/17 Current Visit: No Plan: Acute respiratory failure most likely secondary to AFib with RVR versus CHF versus COPD exacerbation -currently patient weaned off of BiPAP -patient is currently DNR DNI. -the IV Lasix 40 mg b.i.d. Qualifiers: Respiratory failure complication: hypoxia Qualified Code(s): J96.01 - Acute respiratory failure with hypoxia (2) Atrial fibrillation with RVR Onset Date: 05/14/18 Current Visit: No Status: Acute Plan: Currently patient is in atrial fibrillation with RVR heart rate of 120-130. Rate control at time -started back on metoprolol and Coumadin for anti coagulation -currently weaned off of BiPAP and on nasal cannula (3) CHF (congestive heart failure) Onset Date: 05/14/18 Current Visit: No Status: Acute Plan: Acute on chronic congestive heart failure -x-ray was consistent with mild CHF and volume overload pattern -IV Lasix 40 mg b.i.d. at this time -cardiology consulted. Appreciated recommendations -will repeat echo Qualifiers: Heart failure type: unspecified Heart failure chronicity: acute on chronic Qualified Code(s): I50.9 - Heart failure, unspecified (4) COPD (chronic obstructive pulmonary disease) Onset Date: 05/14/18 Current Visit: No Status: Acute Plan: COPD with acute exacerbation -Duonebs, steroids, BiPAP at this time -pulmonology consulted. Appreciated recommendations Qualifiers: COPD type: COPD with acute exacerbation Qualified Code(s): J44.1 - Chronic obstructive pulmonary disease with (acute) exacerbation (5) Diabetes mellitus, type II Onset Date: 05/14/18 Current Visit: No Status: Chronic Plan: Insulin sliding scale and ACHS Qualifiers: Diabetes mellitus long-term insulin use: without long-term use Diabetes mellitus complication status: without complication Qualified Code(s): E11.9 - Type 2 diabetes mellitus without complications (6) Essential hypertension Onset Date: 05/14/18 Current Visit: No Status: Chronic Plan: Restart home medication (7) JARED (obstructive sleep apnea) Onset Date: 05/14/18 Current Visit: No Status: Chronic Plan: CPAP at night (8) Alzheimer's dementia Onset Date: 05/14/18 Current Visit: No Status: Chronic Qualifiers: Alzheimer's disease onset: early-onset Dementia behavioral disturbance: with behavioral disturbance Qualified Code(s): G30.0 - Alzheimer's disease with early onset; F02.81 - Dementia in other diseases classified elsewhere with behavioral disturbance Discharge Plan: Home Plan to discharge in: 72 Hours - Code Status/Comfort Care Code Status Assessed: Yes Critical Care: No
--- NOTE | 2018-05-17 13:54 | ECHO ---
HEIGHT: 5 ft 11 in WEIGHT: 193 lb 14.4 oz DATE OF STUDY: 05/17/[address]: Mini Munguia MD 2-DIMENSIONAL: YES M.MODE: YES DOPPLER: YES COLOR FLOW: YES TDS: PORTABLE: YES DEFINITY: BUBBLE STUDY: DIAGNOSIS: CONGESTIVE HEART FAILURE CARDIAC HISTORY: CATHERIZATION: SURGERY: PROSTHETIC VALVE: PACEMAKER: MEASUREMENTS (cm) DIASTOLIC (NORMALS) SYSTOLIC (NORMALS) IVSd 1.0 (0.6-1.2) LVEF 51% LVIDd 3.1 (3.5-5.7) LVIDs 2.3 (2.0-3.5) %FS 25% LVPWd 1.0 (0.6-1.2) Ao Diam 2.9 (2.0-3.7) 2 DIMENSIONAL ASSESSMENT: RIGHT ATRIUM: NORMAL LEFT ATRIUM: NORMAL RIGHT VENTRICLE: NORMAL LEFT VENTRICLE: NORMAL TRICUSPID VALVE: NORMAL MITRAL VALVE: NORMAL PULMONIC VALVE: NORMAL AORTIC VALVE: NORMAL PERICARDIAL EFFUSION: NONE AORTIC ROOT: NORMAL LEFT VENTRICULAR WALL MOTION: DECREASED LEFT VENTRICULAR COMPLIANCE. DOPPLER/COLOR FLOW: NORMAL. COMMENTS: NORMAL LEFT VENTRICULAR SIZE AND EJECTION FRACTION (51%). DECREASED LEFT VENTRICULAR COMPLIANCE. NO EFFUSION. TECHNOLOGIST: ROBERTA BLACK
[2018-05-17 16:07] LABS: Potassium 3.8 mmol/L (3.5-5.1)
[2018-05-17] MEDS: Levofloxacin500mg IV 500 MG/100 ML BAG IV SCH (17:08)
[2018-05-17] MEDS ORDERED: GLUCERNA SHAKE 237 ML CAN PO SCH (17:30)
[2018-05-17] MEDS: ATORVASTATIN 20 MG TAB PO SCH (21:03)
[2018-05-17] MEDS: TAMSULOSIN 0.4 MG SR CAP PO SCH (21:04)
[2018-05-18 05:24] LABS: Absolute Lymphocytes (CBC) 1.4 K/uL (0.7-4.9); Absolute Monocytes 0.7 K/uL (0.1-1.3); Absolute Neutrophil 10.1 K/uL (1.8-8.0); Basophils % 0.3 % (0-1.3); Eosinophils % 0.6 % (0-4.4); Hematocrit 25.4 % (39.6-49.0); Lymphocytes % 11.7 % (15.3-44.8); MCH 25.2 pg (27.0-35.0); MCV 79.7 fL (80-100); MPV 8.1 fL (7.6-11.3); Monocytes % 5.6 % (3.3-12.3); RBC Red Blood Cell Count 3.18 M/uL (4.33-5.43)
[2018-05-18 05:46] LABS: Albumin 2.9 g/dL (3.4-5.0); Bilirubin Total 0.4 mg/dL (0.2-1.0); Magnesium 2.4 mg/dL (1.8-2.4); Phosphorus 3.5 mg/dL (2.5-4.9); Potassium 3.6 mmol/L (3.5-5.1)
[2018-05-18 05:57] VITALS: TEMP 97.3
[2018-05-18] MEDS ORDERED: POTASSIUM CL SA 10 MEQ TAB PO ONE (09:00)
[2018-05-18] MEDS ORDERED: NAMZARIC PO SCH (09:00)
[2018-05-18] MEDS: CETIRIZINE HCL 5 MG TABLET PO SCH (09:00)
[2018-05-18] MEDS: INSULIN -REGULAR HUMAN 50 UNIT/0.5 ML ML SQ SCH ×2 (09:52→11:49)
[2018-05-18] MEDS: AMLODIPINE 10 MG TAB PO SCH (09:55)
[2018-05-18] MEDS: ASPIRIN EC 81 MG TAB PO SCH (09:56)
[2018-05-18] MEDS: WARFARIN SODIUM 5 MG TAB PO SCH (09:58)
[2018-05-18] MEDS: METOPROLOL TAR 50 MG TAB PO SCH (09:59)
[2018-05-18] MEDS: FUROSEMIDE 40 MG/4 ML VIAL IV SCH (10:00)
[2018-05-18] MEDS: prednisoLONE 15 MG/5 ML OSYR PO SCH (10:00)
[2018-05-18] MEDS: ALLOPURINOL 300 MG TAB PO SCH (10:01)
[2018-05-18] MEDS: FOLIC ACID 1 MG TABLET PO SCH (10:02)
[2018-05-18 12:40] VITALS: O2SAT 96
--- NOTE | 2018-05-18 12:54 | P.DS ---
Admission Date: 05/16/18 Discharge Date: 05/18/18 Primary Care Provider: Dr Jiménez - PCP, Dr Saucedo - cardiology, Dr kay - Pulmonology Disposition: ROUTINE DISCHARGE Discharge Condition: GOOD Reason for Admission: ARF - Problems (1) Acute respiratory failure Onset Date: 06/22/17 Current Visit: No Qualifiers: Respiratory failure complication: hypoxia Qualified Code(s): J96.01 - Acute respiratory failure with hypoxia (2) Atrial fibrillation with RVR Onset Date: 05/14/18 Current Visit: No Status: Acute (3) CHF (congestive heart failure) Onset Date: 05/14/18 Current Visit: No Status: Acute Qualifiers: Heart failure type: unspecified Heart failure chronicity: acute on chronic Qualified Code(s): I50.9 - Heart failure, unspecified (4) COPD (chronic obstructive pulmonary disease) Onset Date: 05/14/18 Current Visit: No Status: Acute Qualifiers: COPD type: COPD with acute exacerbation Qualified Code(s): J44.1 - Chronic obstructive pulmonary disease with (acute) exacerbation (5) Diabetes mellitus, type II Onset Date: 05/14/18 Current Visit: No Status: Chronic Qualifiers: Diabetes mellitus half-way insulin use: without modeling instructor use Diabetes mellitus complication status: without complication Qualified Code(s): E11.9 - Type 2 diabetes mellitus without complications (6) Essential hypertension Onset Date: 05/14/18 Current Visit: No Status: Chronic (7) JARED (obstructive sleep apnea) Onset Date: 05/14/18 Current Visit: No Status: Chronic (8) Alzheimer's dementia Onset Date: 05/14/18 Current Visit: No Status: Chronic Qualifiers: Alzheimer's disease onset: early-onset Dementia behavioral disturbance: with behavioral disturbance Qualified Code(s): G30.0 - Alzheimer's disease with early onset; F02.81 - Dementia in other diseases classified elsewhere with behavioral disturbance Brief History of Present Illness: The patient is a 78-year-old male with past medical history of dementia congestive heart failure; atrial fibrillation, on Coumadin; insulin-dependent diabetes; COPD with oxygen at night only; hypertension; obstructive sleep apnea on CPAP, who was in his usual state of health until this AM prior to admission when the patient started having shortness of breath. The patient has been using his oxygen more during the daytime as well for past couple of days, usually only uses it at night. His oxygen saturation this morning was 79-80% without oxygen. The patient's symptoms are constant, moderate, progressively worsening. The patient was recently admitted to the hospital for altered mental status and was found to have infection which caused his altered mental status along with atrial fibrillation with RVR. The patient was evaluated in the ER lab work and imaging was done. The patient was found to be in atrial fibrillation with RVR. His lab work found multiple electrolyte abnormalities including hypokalemia and hypomagnesemia. The patient' s chest x-ray showed mild CHF volume overload pattern. The patient was then referred for admission. And seen in the ER patient was in AFib with RVR with heart rate of 120-130 on BiPAP. Pt was lethargic and somnolent. Hospital Course: Overall during the hospital stay patient remained stable Patient was initially admitted to the hospital for acute respiratory failure most likely secondary to CHF and COPD exacerbation along with AFib with RVR. Patient was started on BiPAP in the ER for his acute respiratory failure. Was weaned off to nasal cannula successfully here in the hospital. Patient was also started on IV Lasix for her CHF exacerbation along with duo nebs, steroids for his seat COPD exacerbation. Patient was given IV Lopressor in the ER and was restarted back on home medication for his atrial fibrillation here in the hospital. Once his acute symptoms resolved of CHF and COPD his AFib also resolved and patient had rate control here in the hospital. Patient then was transferred to the regular floor when he was a successfully weaned off of BiPAP. Once on the floor patient did well ambulated well and was doing well overall and thus was discharged home under stable condition. Cardiology and pulmonology were consulted here in the hospital and had no further recommendations. Patient was asked to follow up with the primary care provider and pulmonology on outpatient basis. Patient demonstrated understanding and thus was discharged home under stable condition Vital Signs/Physical Exam: Temp Pulse Resp BP Pulse Ox 97.3 F 106 H 18 129/89 96 05/18/18 08:00 05/18/18 10:05/18/18 08:00 05/18/18 10:05/18/18 08:00 General: Alert, In no apparent distress HEENT: Atraumatic, PERRLA, EOMI Neck: Supple, JVD not distended Respiratory: Clear to auscultation bilaterally, Normal air movement Cardiovascular: Regular rate/rhythm, Normal S1 S2 Gastrointestinal: Normal bowel sounds, No tenderness Musculoskeletal: No tenderness Integumentary: No rashes Neurological: Normal speech, Normal tone, Normal affect Lymphatics: No axilla or inguinal lymphadenopathy Laboratory Data at Discharge: WBC 12.4 K/uL (4.3-10.9) H D 05/18/18 04:45 Hgb 8.0 g/dL (13.6-17.9) L 05/18/18 04:45 Hct 25.4 % (39.6-49.0) L 05/18/18 04:45 Plt Count 359 K/uL (152-406) 05/18/18 04:45 Sodium 139 mmol/L (136-145) 05/18/18 04:45 Potassium 3.6 mmol/L (3.5-5.1) 05/18/18 04:45 BUN 32 mg/dL (7-18) H 05/18/18 04:45 Creatinine 1.50 mg/dL (0.55-1.3) H 05/18/18 04:45 Glucose 237 mg/dL (74-106) H 05/18/18 04:45 Phosphorus 3.5 mg/dL (2.5-4.9) 05/18/18 04:45 Magnesium 2.4 mg/dL (1.8-2.4) 05/18/18 04:45 Total Bilirubin 0.4 mg/dL (0.2-1.0) 05/18/18 04:45 AST 12 U/L (15-37) L 05/18/18 04:45 ALT 18 U/L (12-78) 05/18/18 04:45 Alkaline Phosphatase 81 U/L (45-117) 05/18/18 04:45 Home Medications: Allopurinol [Zyloprim*] 150 mg PO DAILY 06/21/17 Aspirin [Aspirin EC 81 MG] 81 mg PO DAILY 06/21/17 Atorvastatin Calcium [Lipitor*] 20 mg PO BEDTIME 06/21/17 Fluticasone [Flonase 50MCG Nasal [place]*] 2 sprays NS DAILY PRN 06/21/17 Folic Acid 0.8 mg PO DAILY 06/21/17 Furosemide [Lasix*] 40 mg PO DAILY 06/21/17 Hydralazine HCl [Apresoline] 1 tab PO DAILY 06/21/17 Losartan Potassium [Cozaar] 100 mg PO DAILY 06/21/17 Memantine HCl/Donepezil HCl [Namzaric 28 mg-10 mg Capsule] 1 tab PO DAILY Metformin HCl [Metformin HCl ER] 1,000 mg PO BID 06/21/17 Metoprolol Tartrate [Lopressor*] 50 mg PO DAILY 06/21/17 Potassium Chloride 10 meq PO DAILY 06/21/17 Tamsulosin [Flomax*] 0.4 mg PO BEDTIME 06/21/17 Amlodipine [Norvasc*] 10 mg PO DAILY 05/12/18 Cyanocobalamin [Vitamin B-12*] 1 mcg IM SEECOM 05/12/18 Meloxicam 7.5 mg PO DAILY 05/12/18 Cetirizine HCl [Zyrtec] 10 mg PO DAILY 05/16/18 Warfarin Sodium 5 mg PO DAILY 05/16/18 Diet: Regular Activity: Ad tova Followup: Bienvenido Thomas MD [ACTIVE - CAN ADMIT] - 1 Week
[2018-05-18 15:14] VITALS: BP 129/64
--- NOTE | 2018-05-20 02:11 | CON ---
Date of Consultation: 05/17/[address] Munguia's service on 05/16/2018. The patient was seen on 05/17/2018. Reason For Consultation: Shortness of breath and atrial fibrillation with rapid ventricular response . History Of Present Illness: Mr. Mcdaniel is a 78-year-old. He is a DNR. He has multiple medical pro blems including chronic atrial fibrillation, COPD, dyslipidemia, benign prostatic hypertrophy, conges tive heart failure, dementia, diabetes, and gout. He came in with shortness of breath, had hemoglobi n of 8.3. He was rapid atrial fibrillation. Denied any chest pain or syncope. Denied PND, orthopne a, or pedal edema. He denied any fever or chills. Allergies: HE IS ALLERGIC TO CODEINE, TRAMADOL, AND LORAZEPAM. Review of Systems: Negative. Social History: Negative. Family History: Negative. Medications: Include allopurinol, Norvasc, aspirin, Lipitor, losartan, hydralazine, Lasix, inhalers, metoprolol, metformin, Coumadin, potassium, and Flomax. His atrial fibrillation was in 109. Physical Examination: VITAL SIGNS: His vital signs were otherwise stable. He was afebrile. HEENT: Negative. NECK: Supple without any bruit, lymphadenopathy, JVD, or thyromegaly. CHEST: Clear. CARDIAC: Revealed atrial fibrillation. ABDOMEN: Benign. EXTREMITIES: Revealed trace edema. Diagnostic Data: Include a glucose of 198. BNP was 2396. Chest x-ray showed CHF. EKG showed atria l fibrillation. Hemoglobin was 8.3. Laboratory Data: Creatinine is 1.2. He was on CPAP and BiPAP. His white count was 17,000. Impression And Plan: 1.Chronic atrial fibrillation with rapid ventricular response expected considering he probably has b ronchitis with a white count of 17,000. He is anemic. He has some mild exacerbation of chronic sanders tolic congestive heart failure. Echocardiogram in June of 2017 was normal. I agree with antibio tics, and Lasix in addition to his usual regimen. The patient is already on Coumadin. 2.Anemia that should be investigated. 3.Diabetes, poorly controlled. 4.Chronic obstructive pulmonary disease. 5.Dyslipidemia. 6.Dementia. 7.DNR status. 8.Gout. 9.Benign prostatic hypertrophy. I would continue his present regimen including the antibiotics and Lasix. I would like him to get another 2D echocardiogram to make sure there are no new wall motion a bnormalities. MATA/ROJELIO Voice ID: [id number] Report ID: [id number]
--- NOTE | 2018-05-20 03:01 | PN ---
Date of Progress Note: 05/17/2018 The patient was seen on 05/17/2018 for shortness of breath and atrial fibrillation with rapid ventric ular response. Mr. Mcdaniel had an echocardiogram that was actually fairly normal with some decreased left ventricular compliance. He remained in atrial fibrillation, but his rate is 80 today after jessica ng treated with antibiotics and Lasix. He is a DNR. I do not recommend any further cardiac workup a t this point. I would continue his present regimen. He can certainly tolerate a higher dose of meto prolol. I would recommend he continues his Coumadin, but he can go home whenever it is okay with Dr. Munguia. MATA/ROJELIO Voice ID: [id number] Report ID: [id number]
== END 2018-05-18 13:39 | disposition home or self-care (01) | DRG 189 ==
LOC: ER 09:35 → ERHOLD 11:18 → 3RD-ICU 14:20 → 2ND 05-17 14:35
PROVIDERS: ADMIT Family Medicine; ATTEND Family Medicine
PROC: 5A09357 Assistance with Respiratory Ventilation, Less than 24 Consecutive Hours, Continuous Positive Airway Pressure (ICD-10-PCS; principal; 2018-05-16)
DX: J96.01 Acute respiratory failure with hypoxia (principal); I50.33 Acute on chronic diastolic (congestive) heart failure; J44.1 Chronic obstructive pulmonary disease with (acute) exacerbation; G30.0 Alzheimer's disease with early onset; F02.80 Dementia in other diseases classified elsewhere, unspecified severity, without behavioral disturbance, psychotic disturbance, mood disturbance, and anxiety; G47.33 Obstructive sleep apnea (adult) (pediatric); E11.9 Type 2 diabetes mellitus without complications; E87.6 Hypokalemia; E83.42 Hypomagnesemia; Z88.5 Allergy status to narcotic agent; Z79.01 Long term (current) use of anticoagulants; Z79.84 Long term (current) use of oral hypoglycemic drugs; Z66 Do not resuscitate; I48.2 Chronic atrial fibrillation; E78.5 Hyperlipidemia, unspecified; N40.0 Benign prostatic hyperplasia without lower urinary tract symptoms; M10.9 Gout, unspecified; D64.9 Anemia, unspecified; I11.0 Hypertensive heart disease with heart failure
CPT/HCPCS: 36415; 71045; 80048; 80053; 81003; 82962; 83605; 83735; 83880; 84100; 84145; 84443; 84484; 85025; 87040; 93005; 93306; 94660; 94760; 96374; 96375; 97163; 99285; J3420; J7510

== ENCOUNTER 2018-05-21 20:00 | Inpatient (IN) | payer OTHER, MEDICARE ==
[2018-05-21 20:35] LABS: Arterial Blood Carboxyhemoglob 1.4 % (0-1.5); Blood Gas Oxyhemoglobin 91.5 % (94-97); Blood O2 Saturation 93.5 % (92-98.5)
[2018-05-21 20:59] LABS: Absolute Lymphocytes (CBC) 1.6 K/uL (0.7-4.9); Absolute Monocytes 1.6 K/uL (0.1-1.3); Absolute Neutrophil 17.3 K/uL (1.8-8.0); Basophils % 0.8 % (0-1.3); Eosinophils % 2.3 % (0-4.4); Hematocrit 28.4 % (39.6-49.0); Lymphocytes % 7.6 % (15.3-44.8); MCH 25.2 pg (27.0-35.0); MCV 80.6 fL (80-100); Monocytes % 7.7 % (3.3-12.3); Protime INR 1.46; RBC Red Blood Cell Count 3.53 M/uL (4.33-5.43)
[2018-05-21 21:08] LABS: ALT/SGPT 19 U/L (12-78); AST/SGOT 19 U/L (15-37); Albumin 3.2 g/dL (3.4-5.0); Alkaline Phosphatase 73 U/L (45-117); BUN Blood Urea Nitrogen 18 mg/dL (7-18); Bicarbonate 27 mmol/L (21-32); Bilirubin Direct 0.1 mg/dL (0-0.2); Bilirubin Total 0.4 mg/dL (0.2-1.0); Glucose Level 142 mg/dL (74-106); NT PRO-BNP 4590 pg/mL (<450); Potassium 3.7 mmol/L (3.5-5.1); Protein, Total 7.3 g/dL (6.4-8.2); Sodium Level 140 mmol/L (136-145); Troponin (Emerg Dept Use Only) < 0.02 ng/mL (0.0-0.045)
--- NOTE | 2018-05-21 21:15 | RAD REPORT ---
EXAM DESCRIPTION: RAD - Chest Single View - 05/21/2018 8:54 pm CLINICAL HISTORY: AMS;SOB Chest pain. COMPARISON: Chest Single View dated 05/16/2018; Chest Single View dated 05/11/2018; Chest Pa And Lat (2 Views) dated 07/20/2017; Chest Single View dated 06/21/2017 FINDINGS: Portable technique limits examination quality. Mild interstitial pulmonary edema suspected. The heart is upper limit normal size. No displaced fract ures.
[2018-05-21] MEDS ORDERED: FUROSEMIDE 20 MG/ 2ML VIAL ONE ×2 (21:47→23:59)
[2018-05-21] MEDS ORDERED: CEFTRIAXONE/SWI 1gm 2 GM/20 ML SYR ONE (22:51)
--- NOTE | 2018-05-21 23:04 | EDPHYS ---
Physician Documentation [facility] Name: Bobby Mcdaniel Jr Age: 78 yrs Sex: Male : 1940 Arrival Date: 05/21/2018 Time: 20:01 Bed 4 Private MD: Sandra Yi R ED Physician Miles Son HPI: 05/21 23:00 This 78 yrs old Male presents to ER via Wheelchair with complaints of pm1 Hallucinations, Shortness of breath. 23:00 The patient has shortness of breath at rest. Onset: The symptoms/episode began/occurred pm1 this morning. Duration: The symptoms are continuous. The patient's shortness of breath is aggravated by nothing, is alleviated by nothing. Associated signs and symptoms: Pertinent negatives: chest pain, non-productive cough, productive cough, dizziness, fever, nausea, vomiting. Severity of symptoms: in the emergency department the symptoms are worse. The patient has experienced similar episodes in the past, multiple times. The patient has been recently been admitted at [facility], was discharged last week. Patient with complaints of shortness of breath and increased behavior similar to his sundown syndrome with dementia. Patient arrived to ER with O2 saturation at 87% on 3 L NC. Historical: - Allergies: 20:46 Codeine; fc 20:46 Lorazepam; fc 20:46 tramadol; fc - Home Meds: 20:46 hydralazine 50 mg Oral tab 1 tab daily [Active]; losartan 100 mg Oral tab 1 tab once fc daily [Active]; metformin 500 mg Oral tab 2 tabs 2 times per day [Active]; Lasix 40 mg Oral tab 1 tab once daily [Active]; potassium chloride 10 mEq Oral TbER 1 cap once daily [Active]; Namzaric 28-10 mg Oral CSpX 1 cap once daily [Active]; metoprolol tartrate 50 mg Oral tab 1 tab 2 times per day [Active]; allopurinol 300 mg Oral tab 0.5 tab once daily [Active]; atorvastatin 20 mg Oral tab 1 tab once daily [Active]; warfarin 5 mg Oral tab 1 tab once daily [Active]; tamsulosin 0.4 mg Oral cp24 1 cap once daily [Active]; meloxicam 7.5 mg Oral tab 1 tab daily prn [Active]; fluticasone 50 mcg/actuation nasal spsn 1 spray 2 times per day [Active]; vitamin b12 shot q month [Active]; folic acid 800 mcg Oral tab 1 tab once daily [Active]; aspirin 81 mg Oral TbEC 1 tab once daily [Active]; Vitamin D 4000 Oral daily [Active]; - PMHx: 20:46 Atrial Fib; CHF; COPD; Dementia; Diabetes - NIDDM; Gout; fc - PSHx: 20:46 None; fc - Immunization history:: Last tetanus immunization: up to date Pneumococcal vaccine is up to date, Flu vaccine is up to date. - Social history:: Smoking status: Patient/guardian denies using tobacco, Patient/guardian denies using alcohol. - Ebola Screening: : Patient negative for fever greater than or equal to 101.5 degrees Fahrenheit, and additional compatible Ebola Virus Disease symptoms Patient denies exposure to infectious person Patient denies travel to an Ebola-affected area in the 21 days before illness onset. ROS: 23:00 Constitutional: Negative for fever, chills, and weight loss, Eyes: Negative for injury, pm1 pain, redness, and discharge, ENT: Negative for injury, pain, and discharge, Neck: Negative for injury, pain, and swelling, Cardiovascular: Negative for chest pain, palpitations, and edema, Abdomen/GI: Negative for abdominal pain, nausea, vomiting, diarrhea, and constipation. 23:00 Back: Negative for injury and pain, : Negative for injury, bleeding, discharge, and swelling, MS/Extremity: Negative for injury and deformity, Skin: Negative for injury, rash, and discoloration. 23:00 Respiratory: Positive for shortness of breath, at rest. 23:00 Neuro: Positive for altered mental status, Negative for seizure activity, weakness. Exam: 23:00 Constitutional: This is a well developed, well nourished patient who is awake, alert, pm1 and in no acute distress. Head/Face: Normocephalic, atraumatic. Eyes: Pupils equal round and reactive to light, extra-ocular motions intact. Lids and lashes normal. Conjunctiva and sclera are non-icteric and not injected. Cornea within normal limits. Periorbital areas with no swelling, redness, or edema. ENT: Nares patent. No nasal discharge, no septal abnormalities noted. Tympanic membranes are normal and external auditory canals are clear. Oropharynx with no redness, swelling, or masses, exudates, or evidence of obstruction, uvula midline. Mucous membranes moist. Neck: Trachea midline, no thyromegaly or masses palpated, and no cervical lymphadenopathy. Supple, full range of motion without nuchal rigidity, or vertebral point tenderness. No Meningismus. Chest/axilla: Normal chest wall appearance and motion. Nontender with no deformity. No lesions are appreciated. Cardiovascular: Regular rate and rhythm with a normal S1 and S2. No gallops, murmurs, or rubs. Normal PMI, no JVD. No pulse deficits. 23:00 Abdomen/GI: Soft, non-tender, with normal bowel sounds. No distension or tympany. No guarding or rebound. No evidence of tenderness throughout. Back: No spinal tenderness. No costovertebral tenderness. Full range of motion. Skin: Warm, dry with normal turgor. Normal color with no rashes, no lesions, and no evidence of cellulitis. MS/ Extremity: Pulses equal, no cyanosis. Neurovascular intact. Full, normal range of motion. 23:00 Respiratory: the patient does not display signs of respiratory distress, Respirations: normal, Breath sounds: rales, are located in both bases. 23:00 Neuro: Orientation: Not oriented to person, place, time, Baseline per due to dementia. Motor: moves all fours. Vital Signs: 20:05 BP 117 / 90; Pulse 110; Resp 24; Temp 98.8(TE); Pulse Ox 87% on 3 lpm NC; Weight 84.82 fc kg (R); Height 5 ft. 11 in. (180.34 cm) (R); Pain 0/10; 20:58 BP 135 / 80; Pulse 101; Resp 22 S; Pulse Ox 99% on R/A; jd3 21:30 BP 118 / 76; Pulse 100; Resp 21 S; Pulse Ox 97% on 3 lpm NC; jd3 22:19 BP 132 / 67; Pulse 104; Resp 20 S; Pulse Ox 97% on 3 lpm NC; jd3 23:30 BP 129 / 74; Pulse 107; Resp 21 S; Pulse Ox 97% on 3 lpm NC; jd3 05/22 00:22 BP 100 / 83; Pulse 104; Resp 22 S; Pulse Ox 96% on 3 lpm NC; jd3 01:20 BP 128 / 52; Pulse 101; Resp 21 S; Pulse Ox 99% on 3 lpm NC; jd3 05/21 20:05 Body Mass Index 26.08 (84.82 kg, 180.34 cm) [facility]: 05/21 20:22 Patient medically screened. pm1 23:01 Data reviewed: vital signs. Data interpreted: Pulse oximetry: on room air is 97 %. pm1 Interpretation: normal. Counseling: I had a detailed discussion with the patient and/or guardian regarding: the historical points, exam findings, and any diagnostic results supporting the discharge/admit diagnosis, lab results, radiology results, the need for further work-up and treatment in the hospital. 23:52 Physician consultation: Andreina Sosa MD was called at 23:52. pm1 05/21 20:22 Order name: Basic Metabolic Panel; Complete Time: 21:10 pm1 05/21 20:22 Order name: CBC with Diff; Complete Time: 21:10 pm1 05/21 20:22 Order name: LFT's; Complete Time: 21:10 pm1 05/21 20:22 Order name: Magnesium; Complete Time: 21:10 pm1 05/21 20:22 Order name: NT PRO-BNP; Complete Time: 21:10 pm1 05/21 20:22 Order name: PT-INR; Complete Time: 21:10 pm1 05/21 20:22 Order name: Troponin (emerg Dept Use Only); Complete Time: 21:10 pm1 05/21 20:22 Order name: ABG; Complete Time: 23:01 pm1 05/21 21:05 Order name: Blood Culture Adult (2) 05/21 21:11 Order name: Procalcitonin; Complete Time: 22:30 pm1 05/21 21:11 Order name: Lactate; Complete Time: 22:30 pm1 05/21 21:13 Order name: Urine Microscopic Only; Complete Time: 23:09 pm1 05/21 21:55 Order name: Blood Culture EDNY 05/21 22:34 Order name: Urine Dipstick--Ancillary (enter results); Complete Time: 23:06 ms 05/21 20:22 Order name: XRAY Chest (1 view); Complete Time: 21:24 pm1 05/21 20:22 Order name: EKG; Complete Time: 20:22 pm1 05/21 20:22 Order name: Cardiac monitoring; Complete Time: 20:38 pm1 05/21 20:22 Order name: EKG - Nurse/Tech; Complete Time: 20:38 pm1 05/21 20:22 Order name: IV Saline Lock; Complete Time: 20:38 pm1 05/21 20:22 Order name: Labs collected and sent; Complete Time: 20:38 pm1 05/21 20:22 Order name: O2 Per Protocol; Complete Time: 20:38 pm1 05/21 20:22 Order name: O2 Sat Monitoring; Complete Time: 20:38 pm1 05/21 21:13 Order name: Urine Dipstick-Ancillary (obtain specimen); Complete Time: 22:55 pm1 Administered Medications: 21:44 Drug: Lasix 20 mg Route: IVP; Site: right hand; jd3 22:40 Follow up: Response: No adverse reaction jd3 22:52 Drug: Rocephin 2 grams Route: IV; Rate: calculated rate; Site: right hand; jd3 23:11 Follow up: Response: No adverse reaction; IV Status: Completed infusion jd3 23:54 Drug: Lasix 20 mg Route: IVP; Site: right hand; ak1 05/22 00:11 Follow up: Response: No adverse reaction ak1 Disposition: 07:50 Co-signature as Attending Physician, Miles Son MD I agree with the assessment and wa plan of care. Disposition: 05/21/18 23:03 Hospitalization ordered by Andreina Sosa for Observation. Preliminary diagnosis are Acute pulmonary edema, Shortness of breath, Hypoxia, Unspecified atrial fibrillation. - Bed requested for Telemetry/MedSurg (observation). - Status is Observation. jd3 - Condition is Stable. - Problem is new. - Symptoms have improved. UTI on Admission? No Signatures: Dispatcher [employer] EDMS Mahogany Adams RN RN [place] Burton RN RN fc Krenek, Amber, RN RN ak1 Tani Patten, YOUTH MANAGER YOUTH MANAGER pm1 Miles Son MD MD wa Davies, Jonathon, RN RN jd3 Corrections: (The following items were deleted from the chart) 05/21 23:07 23:03 Hospitalization Ordered by for Observation. Preliminary diagnosis is Shortness of pm1 breath. Bed requested for Telemetry/MedSurg (observation). Status is Observation. Condition is Stable. Problem is new. Symptoms have improved. UTI on Admission? No. pm1 23:09 23:07 05/21/2018 23:03 Hospitalization Ordered by Andreina Sosa MD for Observation. pm1 Preliminary diagnosis is Shortness of breath; Hypoxia. Bed requested for Telemetry/MedSurg (observation). Status is Observation. Condition is Stable. Problem is new. Symptoms have improved. UTI on Admission? No. pm1 05/22 00:04 05/21 23:09 05/21/2018 23:03 Hospitalization Ordered by Andreina Sosa MD for mw Observation. Preliminary diagnosis is Acute pulmonary edemaShortness of breath; Hypoxia; Unspecified atrial fibrillation. Bed requested for Telemetry/MedSurg (observation). Status is Observation. Condition is Stable. Problem is new. Symptoms have improved. UTI on Admission? No. pm1 05/22 01:32 00:04 05/21/2018 23:03 Hospitalization Ordered by Andreina Sosa MD for Observation. jd3 Preliminary diagnosis is Acute pulmonary edemaShortness of breath; Hypoxia; Unspecified atrial fibrillation. Bed requested for Telemetry/MedSurg (observation). Status is Observation. Condition is Stable. Problem is new. Symptoms have improved. UTI on Admission? No. mw
--- NOTE | 2018-05-21 23:04 | ER ---
Nurse's Notes [facility] Name: Bobby Mcdaniel Jr Age: 78 yrs Sex: Male : 1940 Arrival Date: 05/21/2018 Time: 20:01 Bed 4 Private MD: Sandra Yi R Diagnosis: Shortness of breath;Hypoxia;Acute pulmonary edema;Unspecified atrial fibrillation Presentation: 05/21 20:05 Presenting complaint: states: that pt is having shortness of breath and started to fc hallucinate. States that when he gets this way it is because he has infection today. Pt was just discharged from this hospital last Sunday. Was seen today at Dr Chong's office and his heart rate was high so his medications were changed. Transition of care: patient was not received from another setting of care. Onset of symptoms was May 21, 2018. Risk Assessment: Do you want to hurt yourself or someone else? Patient reports no desire to harm self or others. Initial Sepsis Screen: Does the patient meet any 2 criteria? RR > 20 per min. HR > 90 bpm. Yes Does the patient have a suspected source of infection? Yes: Productive cough/pneumonia If YES to both, name of provider notified: Tani Patten MAGAZINE SUPERVISOR. Care prior to arrival: Oxygen administered. on home o2 at 2 liters per nasal cannula. 20:05 Method Of Arrival: Wheelchair fc 20:05 Acuity: RAYO 2 fc Historical: - Allergies: 20:46 Codeine; fc 20:46 Lorazepam; fc 20:46 tramadol; fc - Home Meds: 20:46 hydralazine 50 mg Oral tab 1 tab daily [Active]; losartan 100 mg Oral tab 1 tab once fc daily [Active]; metformin 500 mg Oral tab 2 tabs 2 times per day [Active]; Lasix 40 mg Oral tab 1 tab once daily [Active]; potassium chloride 10 mEq Oral TbER 1 cap once daily [Active]; Namzaric 28-10 mg Oral CSpX 1 cap once daily [Active]; metoprolol tartrate 50 mg Oral tab 1 tab 2 times per day [Active]; allopurinol 300 mg Oral tab 0.5 tab once daily [Active]; atorvastatin 20 mg Oral tab 1 tab once daily [Active]; warfarin 5 mg Oral tab 1 tab once daily [Active]; tamsulosin 0.4 mg Oral cp24 1 cap once daily [Active]; meloxicam 7.5 mg Oral tab 1 tab daily prn [Active]; fluticasone 50 mcg/actuation nasal spsn 1 spray 2 times per day [Active]; vitamin b12 shot q month [Active]; folic acid 800 mcg Oral tab 1 tab once daily [Active]; aspirin 81 mg Oral TbEC 1 tab once daily [Active]; Vitamin D 4000 Oral daily [Active]; - PMHx: 20:46 Atrial Fib; CHF; COPD; Dementia; Diabetes - NIDDM; Gout; fc - PSHx: 20:46 None; fc - Immunization history:: Last tetanus immunization: up to date Pneumococcal vaccine is up to date, Flu vaccine is up to date. - Social history:: Smoking status: Patient/guardian denies using tobacco, Patient/guardian denies using alcohol. - Ebola Screening: : Patient negative for fever greater than or equal to 101.5 degrees Fahrenheit, and additional compatible Ebola Virus Disease symptoms Patient denies exposure to infectious person Patient denies travel to an Ebola-affected area in the 21 days before illness onset. Screenin:05 Abuse screen: Denies threats or abuse. Nutritional screening: No deficits noted. fc Tuberculosis screening: No symptoms or risk factors identified. Fall Risk Fall in past 12 months (25 points). Secondary diagnosis (15 points) dementia, No IV (0 pts). Ambulatory Aid- Crutches/Cane/Walker (15 pts). Gait- Impaired (20 pts.). Mental Status- Overestimates/Forgets Limitations (15 pts.). Total Ford Fall Scale indicates High Risk Score (45 or more points). Fall prevention measures have been instituted. Side Rails Up X 2 Placed Close to Nursing Station Frequent Obs/Assessments Occuring Family Present and informed to notify staff if the need to leave the bedside As available patient and family educated on Fall Prevention Program and Strategies. Assessment: 20:29 General: Appears in no apparent distress. Behavior is calm, inappropriate for age. jd3 Pain: Denies pain. Neuro: Level of Consciousness is awake, alert, confused, Oriented to person. Cardiovascular: Heart tones S1 S2 present Capillary refill < 3 seconds Patient's skin is warm and dry. Rhythm is irregular. Respiratory: Airway is patent Respiratory effort is even, unlabored, Respiratory pattern is regular, symmetrical, Breath sounds are clear bilaterally. GI: Abdomen is round Bowel sounds present X 4 quads. Abd is soft and non tender X 4 quads. Abd is non tender X 4 quads. : No signs and/or symptoms were reported regarding the genitourinary system. EENT: No signs and/or symptoms were reported regarding the EENT system. Derm: Skin is intact, Skin is dry, Skin is normal, Skin temperature is warm. Musculoskeletal: Circulation, motion, and sensation intact. Range of motion: intact in all extremities. 20:58 Reassessment: Patient appears in no apparent distress at this time. No changes from jd3 previously documented assessment. Patient and/or family updated on plan of care and expected duration. Pain level reassessed. 21:45 Reassessment: Patient appears in no apparent distress at this time. No changes from jd3 previously documented assessment. Patient and/or family updated on plan of care and expected duration. Pain level reassessed. 22:17 Reassessment: Patient appears in no apparent distress at this time. No changes from jd3 previously documented assessment. Patient and/or family updated on plan of care and expected duration. Pain level reassessed. 05/22 00:25 Reassessment: Patient appears in no apparent distress at this time. No changes from jd3 previously documented assessment. Patient and/or family updated on plan of care and expected duration. Pain level reassessed. 01:20 Reassessment: Patient appears in no apparent distress at this time. No changes from jd3 previously documented assessment. Patient and/or family updated on plan of care and expected duration. Pain level reassessed. Vital Signs: 05/21 20:05 BP 117 / 90; Pulse 110; Resp 24; Temp 98.8(TE); Pulse Ox 87% on 3 lpm NC; Weight 84.82 fc kg (R); Height 5 ft. 11 in. (180.34 cm) (R); Pain 0/10; 20:58 BP 135 / 80; Pulse 101; Resp 22 S; Pulse Ox 99% on R/A; jd3 21:30 BP 118 / 76; Pulse 100; Resp 21 S; Pulse Ox 97% on 3 lpm NC; jd3 22:19 BP 132 / 67; Pulse 104; Resp 20 S; Pulse Ox 97% on 3 lpm NC; jd3 23:30 BP 129 / 74; Pulse 107; Resp 21 S; Pulse Ox 97% on 3 lpm NC; jd3 05/22 00:22 BP 100 / 83; Pulse 104; Resp 22 S; Pulse Ox 96% on 3 lpm NC; jd3 01:20 BP 128 / 52; Pulse 101; Resp 21 S; Pulse Ox 99% on 3 lpm NC; jd3 05/21 20:05 Body Mass Index 26.08 (84.82 kg, 180.34 cm) fc ED Course: 05/21 20:01 Patient arrived in ED. al2 20:01 Sandra Yi MD is Private Physician. al2 20:05 Arm band placed on Patient placed in an exam room, on a stretcher, on oxygen. fc 20:14 aTni Patten NP is PHCP. pm1 20:14 Miles Son MD is Attending Physician. pm1 20:28 Pasha Martin RN is Primary Nurse. jd3 20:31 Inserted saline lock: 20 gauge in right hand, using aseptic technique. Blood collected. ak1 20:31 EKG done, by ED staff, reviewed by Tani Patten NP. jd3 20:31 Patient has correct armband on for positive identification. Bed in low position. Call jd3 light in reach. Side rails up X2. Adult w/ patient. 20:39 Triage completed. fc 20:54 XRAY Chest (1 view) In Process Unspecified. EDMS 21:01 Notified Nurse Practitioner and/or Physician [employer] of a critical lab result(s), wbc fc of 21.2. 21:22 Lactate Sent. jd3 21:22 Procalcitonin Sent. jd3 21:22 Blood Culture Adult (2) Sent. jd3 22:31 Urine collected: clean catch specimen, cloudy, Amount Voided: 280mL. cb2 23:07 Andreina Sosa MD is Hospitalizing Provider. pm1 05/22 01:11 No provider procedures requiring assistance completed. Patient admitted, IV remains in jd3 place. Administered Medications: 05/21 21:44 Drug: Lasix 20 mg Route: IVP; Site: right hand; jd3 22:40 Follow up: Response: No adverse reaction jd3 22:52 Drug: Rocephin 2 grams Route: IV; Rate: calculated rate; Site: right hand; jd3 23:11 Follow up: Response: No adverse reaction; IV Status: Completed infusion jd3 23:54 Drug: Lasix 20 mg Route: IVP; Site: right hand; ak1 05/22 00:11 Follow up: Response: No adverse reaction ak1 Output: 05/21 22:31 Urine: 280ml (Voided); Total: 280ml. cb2 Outcome: 23:03 Decision to Hospitalize by Provider. pm1 05/22 01:11 Admitted to Tele accompanied by tech, via stretcher, room 403, with oxygen, with chart, jd3 Report called to Nadira FORBES Condition: stable Instructed on the need for admit, Demonstrated understanding of instructions. 01:32 Patient left the ED. jd3 Signatures: Dispatcher [employer] EDMS [place] Burton, RN RN Gail Allen RN RN ak1 Tani Patten, MAGAZINE SUPERVISOR MAGAZINE SUPERVISOR pm1 Graeme Ware Jonathon RN RN Taryn Schwab Corrections: (The following items were deleted from the chart) 05/21 22:17 20:58 Reassessment: Patient appears in no apparent distress at this time. No changes jd3 from previously documented assessment. Patient and/or family updated on plan of care and expected duration. Pain level reassessed. Patient is alert, oriented x 3, equal unlabored respirations, skin warm/dry/pink. jd3
[2018-05-21 23:05] LABS: Urine Blood NEGATIVE (NEG); Urine Glucose NEGATIVE (NEG); Urine Protein NEGATIVE (NEG); Urine Specific Gravity 1.015 (1.005-1.030)
[2018-05-21 23:09] LABS: Urine Bacteria <20 /HPF (NONE SEEN); Urine Culture Reflex Order NOT NEEDED; Urine RBC NONE SEEN /HPF (NONE SEEN)
[2018-05-22] MEDS ORDERED: MAGNESIUM HYDROXIDE 8% 30 ML PO PRN (00:47)
[2018-05-22] MEDS ORDERED: ONDANSETRON 4 MG/2 ML VIAL IV PRN (00:47)
[2018-05-22] MEDS ORDERED: ALBUTEROL 2.5 MG/3 ML NEB SOL NEB PRN (00:47)
[2018-05-22] MEDS ORDERED: IPRATROPIUM BROM 0.5MG/2.5ML NEB PRN (00:47)
[2018-05-22] MEDS ORDERED: ACETAMINOPHEN 500 MG TAB PO PRN (00:47)
[2018-05-22] MEDS ORDERED: ALBUMIN HUMAN 25% 200 ML IV ONE (00:52)
[2018-05-22] MEDS: FUROSEMIDE 40 MG/4 ML VIAL IV SCH ×3 (01:00→17:14)
[2018-05-22 03:19] LABS: Urine Appearance CLEAR; Urine Bilirubin NEGATIVE (NEG); Urine Blood NEGATIVE (NEG); Urine Color YELLOW; Urine Glucose NEGATIVE (NEG); Urine Protein NEGATIVE (NEG); Urine Specific Gravity <=1.005 (1.005-1.030); Urine Urobilinogen 0.2 mg/dL (0.2-1.0)
[2018-05-22 03:50] LABS: Urine Microscopic Reflex NO UMIC
--- NOTE | 2018-05-22 07:48 | EKG ---
Test Date: 2018-05-21 Test Time: 20:26:03 Tobacco Educator: DOC MEASUREMENT RESULTS: Intervals: Rate: 113 NH: QRSD: 96 QT: 330 QTc: 452 [place]: P: NH: QRS: -57 T: 41 INTERPRETIVE STATEMENTS: Atrial fibrillation with rapid ventricular response Left axis deviation Abnormal ECG Compared to ECG 05/16/2018 09:45:30 ST (T wave) deviation no longer present Electronically Signed On 05-22-18 07:48:17 CDT by Deion Santos
[2018-05-22] MEDS: CEFTRIAXONE/SWI 1gm 1 GM/10 ML SYR IV SCH ×2 (08:32→21:51)
[2018-05-22] MEDS: ALLOPURINOL 300 MG TAB PO SCH (08:37)
[2018-05-22] MEDS: FOLIC ACID 1 MG TABLET PO SCH (08:37)
[2018-05-22] MEDS: POTASSIUM CL SA 10 MEQ TAB PO SCH ×3 (08:38→21:52)
[2018-05-22] MEDS: METFORMIN ER 500 MG TAB PO SCH ×2 (08:38→21:51)
[2018-05-22] MEDS: ASPIRIN EC 81 MG TAB PO SCH (08:40)
[2018-05-22] MEDS ORDERED: ENOXAPARIN 40 MG/0.4 ML SQ SCH (09:00)
[2018-05-22] MEDS ORDERED: LOSARTAN POTASSIUM 50 MG TABLET PO SCH (09:00)
[2018-05-22] MEDS ORDERED: METOPROLOL TAR 50 MG TAB PO SCH ×2 (09:00)
[2018-05-22] MEDS ORDERED: CEFTRIAXONE 1 GM/50 ML BAG IV SCH (09:00)
[2018-05-22] MEDS ORDERED: AMLODIPINE 10 MG TAB PO SCH (09:00)
--- NOTE | 2018-05-22 10:33 | P.HP ---
Certification for Inpatient Patient admitted to: Inpatient With expected LOS: >2 Midnights Patient will require the following post-hospital care: None Practitioner: I am a practitioner with admitting privileges, knowledge of patient current condition, hospital course, and medical plan of care. Services: Services provided to patient in accordance with Admission requirements found in Title 42 Section 412.3 of the Code of Federal Regulations Patient History Date of Service: 05/22/18 Reason for admission: Hallucination weakness History of Present Illness: Patient is a 78-year-old gentleman came into the hospital with shortness of breath. Patient has been in the hospital repeatedly over the last few weeks. He comes in once again with shortness of breath and this time he is having some hallucinations as well. He came into the emergency room and his white count was elevated. He also had pulmonary edema on his chest x-ray. He was hypoxic with O2 sats of 85% on 3 L. patient was given IV diuretics and medication for her controlling his rate in the emergency room. He is still somewhat confused in the family states that he is little difficult to handle at home. He will be admitted to the hospital for further workup. This could be related to hypoxemia. This could also be related to another infectious etiology. Allergies codeine Adverse Reaction (Verified 05/11/18 21:56) see comment lorazepam [From Ativan] Adverse Reaction (Verified 05/11/18 21:56) see comment tramadol Adverse Reaction (Verified 05/11/18 21:56) see comment Home Medications: Allopurinol [Zyloprim*] 150 mg PO DAILY 06/21/17 Aspirin [Aspirin EC 81 MG] 81 mg PO DAILY 06/21/17 Atorvastatin Calcium [Lipitor*] 20 mg PO BEDTIME 06/21/17 Fluticasone [Flonase 50MCG Nasal [place]*] 2 sprays NS DAILY PRN 06/21/17 Furosemide [Lasix*] 40 mg PO DAILY 06/21/17 Hydralazine HCl [Apresoline] 1 tab PO TID 06/21/17 Losartan Potassium [Cozaar] 100 mg PO DAILY 06/21/17 Memantine HCl/Donepezil HCl [Namzaric 28 mg-10 mg Capsule] 1 tab PO DAILY Metformin HCl [Metformin HCl ER] 1,000 mg PO BID 06/21/17 Metoprolol Tartrate [Lopressor*] 50 mg PO BID 06/21/17 Potassium Chloride 10 meq PO DAILY 06/21/17 Tamsulosin [Flomax*] 0.4 mg PO BEDTIME 06/21/17 Cyanocobalamin [Vitamin B-12*] 1 mcg IM SEECOM 05/12/18 Meloxicam 7.5 mg PO DAILY PRN 05/12/18 Warfarin Sodium 5 mg PO EVERY 7TH DAY 05/16/18 Cholecalciferol (Vitamin D3) [Vitamin D3] 1 cap PO DAILY 05/22/18 Folic Acid 1 tab PO DAILY 05/22/18 Warfarin Sodium 1 tab PO SEECOM 05/22/18 - Past Medical/Surgical History Has patient received pneumonia vaccine in the past: Yes Diabetic: Yes -: htn -: DM II -: COPD -: CHF -: Afib -: dementia -: sleep apnea Past Surgical History: Patient denies surgical history - Family History Mother Medical History: Heart disease, Hypertension Brother Medical History: Lung disease Sister Medical History: Heart disease Father History Unknown: Yes - Social History Smoking Status: Never smoker Alcohol use: No CD- Drugs: No Caffeine use: Yes Place of Residence: Home Review of Systems 10-point ROS is otherwise unremarkable Physical Examination - Vital Signs Temperature: 98.0 F Blood Pressure: 99/54 Pulse: 88 Respirations: 20 Pulse Ox (%): 96 - Physical Exam General: Alert, In no apparent distress, Confused HEENT: Atraumatic, PERRLA, Mucous membr. moist/pink, EOMI, Sclerae nonicteric Neck: Supple, 2+ carotid pulse no bruit, No LAD, Without JVD or thyroid abnormality Respiratory: Diminished, Crackles/rales Cardiovascular: Regular rate/rhythm, Normal S1 S2, Systolic murmur Gastrointestinal: Normal bowel sounds, Soft and benign, Non-distended, No tenderness Musculoskeletal: No clubbing, No swelling, No tenderness Integumentary: No rashes Neurological: Normal speech, Normal tone, Sensation intact, Cranial nerves 3-12 intact, Normal affect, Abnormal gait, Abnormal strength Lymphatics: No axilla or inguinal lymphadenopathy - Studies Laboratory Data (last 24 hrs) 05/22/18 02:40: Phosphorus 3.2 05/21/18 20:30: PT 17.3 H, INR 1.46 05/21/18 20:30: WBC 21.2 H* D, Hgb 8.9 L, Hct 28.4 L, Plt Count 474 H D 05/21/18 20:30: Sodium 140, Potassium 3.7, BUN 18, Creatinine 1.40 H, Glucose 142 H, Magnesium 2.0, Total Bilirubin 0.4, AST 19, ALT 19, Alkaline Phosphatase 73 Assessment & Plan - Problems (Diagnosis) (1) Pulmonary edema Current Visit: Yes Status: Acute (2) Hypoxemia Current Visit: Yes Status: Acute (3) Acute respiratory failure Onset Date: 06/22/17 Current Visit: No Status: Acute Qualifiers: (4) Atrial fibrillation with RVR Onset Date: 05/14/18 Current Visit: No Status: Acute (5) CHF (congestive heart failure) Onset Date: 05/14/18 Current Visit: No Status: Acute Qualifiers: (6) COPD (chronic obstructive pulmonary disease) Onset Date: 05/14/18 Current Visit: No Status: Acute Qualifiers: (7) Alzheimer's dementia Onset Date: 05/14/18 Current Visit: No Status: Chronic Qualifiers: (8) Diabetes mellitus, type II Onset Date: 05/14/18 Current Visit: No Status: Chronic Qualifiers: (9) Essential hypertension Onset Date: 05/14/18 Current Visit: No Status: Chronic (10) JARED (obstructive sleep apnea) Onset Date: 05/14/18 Current Visit: No Status: Chronic - Plan 1. Echocardiogram reviewed; patient with decreased left ventricular relaxation 2. Continue Cozaar 3. Continue with Beta clyde 4. Cardiology consultation if symptoms are worsening 5. Aggressive diuresis 6. Strict I's and O's 7. Repeat CXR 8. Daily weights 9. Rule out infectious etiology; panculture-UA was negative and chest x-ray does not show a pneumonia. Blood cultures pending. 10. May need imaging if mentation is still altered; family states that he was fine this morning when he gets like this during the evening. This could be . It could be other neurologic issues going on that may be explained within imaging. May need to get neurology consultation as well. 11. Education regarding diet and treatment of congestive heart failure Discharge Plan: Home Plan to discharge in: Greater than 2 days - Advance Directives Does patient have a Living Will: Yes Does patient have a Durable POA for Healthcare: Yes - Code Status/Comfort Care Code Status Assessed: Yes Code Status: Full Code Critical Care: No Time Spent Managing PTS Care (In Minutes): 50
[2018-05-22] MEDS ORDERED: FLUTICASONE 50MCG NASAL SPRAY NAS PRN (10:36)
[2018-05-22] MEDS ORDERED: GLUCAGON 1 MG/VIAL IM PRN (13:19)
[2018-05-22] MEDS ORDERED: D50W 25 GM/50 ML SYRINGE IV PRN (13:19)
[2018-05-22] MEDS: INSULIN -REGULAR HUMAN 50 UNIT/0.5 ML ML SQ SCH ×2 (16:30→21:00)
--- NOTE | 2018-05-22 16:52 | PN ---
Date of Progress Note: 05/22/2018 Subjective: The patient seen and examined. Chart reviewed and case discussed with RN. The patient has had multiple admissions to the hospital in the past month. The patient again having an episode of hallucinations according to the family. Shortness of breath is stable, but still requiring supplemental oxygen. Review of Systems: Negative except as above. Medications: List reviewed. Code Status: Do not resuscitate. Physical Examination: Vital Signs: Temperature 98.3, heart rate 88, blood pressure 99/54, respirations 20, O2 95% on 3 L via nasal cannula. General: Asleep but arousable, ill-appearing elderly male, in some mild distress. CV: S1, S2, irregularly irregular. Peripheral pulses present. Respiratory: Diminished breath sounds. No wheezing or stridor. No use of accessory muscles. Gastrointestinal: Abdomen is soft, nontender, nondistended. Positive bowel sounds. No guarding or rigidity. Extremities: No clubbing or cyanosis. Trace pedal edema. Neurologic: Nonfocal. Laboratory Data: Repeat lactate is 1.1, phosphorus 3.2, glucose is 152 and 238. UA is negative. Urine culture is pending. Blood culture is also pending. Assessment And Plan: A 78-year-old male with: 1. Acute respiratory distress. The patient on supplemental oxygen, likely due to pulmonary edema. We will continue with oxygen as needed. Try to wean off. 2. Acute pulmonary edema, likely due to congestive heart failure with recent echocardiogram showed ejection fraction of 51%, diastolic dysfunction. 3. Hypoxemia secondary to above. 4. Atrial fibrillation with rapid ventricular response, now with rate control. Continue beta-blockers. The patient did receive Lopressor. 5. Chronic obstructive pulmonary disease, chronic bronchitis. 6. Alzheimer dementia with behavioral disturbance. The patient having hallucination and agitation. We will continue to monitor. Resume home medications as appropriate. May need p.r.n. medications such as Haldol. 7. Diabetes mellitus type 2 with hyperglycemia, non-insulin requiring. Continue to monitor blood glucose levels. We will continue sliding scale insulin. 8. Essential hypertension, stable. 9. Obstructive sleep apnea. Continue CPAP at night. 10. Status post chronic anticoagulation for atrial fibrillation. INR subtherapeutic at 1.46. We will continue Coumadin and daily INR check. 11. Neutrophilic leukocytosis, unclear source. Chest x-ray and urine were clear. We will follow up with blood cultures. The patient currently afebrile. 12. Gastrointestinal and deep venous thrombosis prophylaxis. The patient already on Coumadin. Plan: Continue to monitor closely. We will discuss with social work regarding placement. The patient has had 3 readmissions over the past month. May benefit from Long Term Facility versus long-term nursing care due to his dementia and other comorbidities. states that she will talk to her daughter. /ROJELIO Voice ID: [id number] Report ID: [id number] MTDD
[2018-05-22] MEDS: METOPROLOL TAR 25 MG TAB PO SCH (17:14)
[2018-05-22] MEDS: WARFARIN SODIUM 5 MG TAB PO SCH (17:14)
[2018-05-22] MEDS: ATORVASTATIN 20 MG TAB PO SCH (21:51)
[2018-05-22] MEDS: TAMSULOSIN 0.4 MG SR CAP PO SCH (21:51)
[2018-05-22] MEDS: LACTOBACILLUS/ACIDOPHILUS TAB PO SCH (21:52)
[2018-05-22] MEDS: LOSARTAN POTASSIUM 50 MG TABLET PO SCH (21:52)
[2018-05-23] MEDS: FUROSEMIDE 40 MG/4 ML VIAL IV SCH ×3 (01:34→18:23)
[2018-05-23] MEDS: METOPROLOL TAR 25 MG TAB PO SCH ×2 (05:23→18:23)
[2018-05-23 05:31] VITALS: BMI 26.7
[2018-05-23 06:07] LABS: Absolute Lymphocytes (CBC) 2.1 K/uL (0.7-4.9); Absolute Monocytes 1.1 K/uL (0.1-1.3); Absolute Neutrophil 8.5 K/uL (1.8-8.0); Basophils % 0.7 % (0-1.3); Eosinophils % 6.3 % (0-4.4); Hematocrit 26.4 % (39.6-49.0); Lymphocytes % 16.5 % (15.3-44.8); MCH 25.1 pg (27.0-35.0); MCV 78.5 fL (80-100); MPV 7.9 fL (7.6-11.3); Monocytes % 8.8 % (3.3-12.3); RBC Red Blood Cell Count 3.37 M/uL (4.33-5.43)
[2018-05-23 06:23] LABS: Protime INR 1.36
[2018-05-23 06:32] LABS: Albumin 3.2 g/dL (3.4-5.0); Bilirubin Total 0.4 mg/dL (0.2-1.0); Protein, Total 7.2 g/dL (6.4-8.2)
[2018-05-23 06:41] LABS: Potassium 2.7 mmol/L (3.5-5.1)
[2018-05-23] MEDS ORDERED: KCL 20 MEQ/100 mL IVPB 20 MEQ/100 ML BAG IV SCH (07:00)
[2018-05-23] MEDS: INSULIN -REGULAR HUMAN 50 UNIT/0.5 ML ML SQ SCH ×4 (07:30→21:00)
[2018-05-23] MEDS ORDERED: POTASSIUM CL 60 MEQ in NA CHLORIDE 0.9% 500 ML IV ONE (08:00)
[2018-05-23] MEDS ORDERED: CYANOCOBALAMIN 1000MCG/ML INJ IM SCH (09:00)
[2018-05-23] MEDS ORDERED: FOLIC ACID PO SCH (09:00)
[2018-05-23] MEDS: DONEPEZIL HCL PO SCH (09:05)
[2018-05-23] MEDS: MEMANTINE HCL PO SCH (09:05)
[2018-05-23] MEDS: VITAMIN D 1000 UNIT TAB PO SCH (09:05)
[2018-05-23] MEDS: ASPIRIN EC 81 MG TAB PO SCH (09:06)
[2018-05-23] MEDS: ALLOPURINOL 300 MG TAB PO SCH (09:06)
[2018-05-23] MEDS: LOSARTAN POTASSIUM 50 MG TABLET PO SCH ×2 (09:06→21:35)
[2018-05-23] MEDS: LACTOBACILLUS/ACIDOPHILUS TAB PO SCH ×2 (09:06→21:33)
[2018-05-23] MEDS: METFORMIN ER 500 MG TAB PO SCH ×2 (09:06→21:35)
[2018-05-23] MEDS: FOLIC ACID 1 MG TABLET PO SCH (09:07)
[2018-05-23] MEDS: POTASSIUM CL SA 10 MEQ TAB PO SCH ×3 (09:07→21:35)
[2018-05-23] MEDS: CEFTRIAXONE/SWI 1gm 1 GM/10 ML SYR IV SCH ×2 (09:07→21:39)
[2018-05-23] MEDS ORDERED: WARFARIN SODIUM 2.5 MG TAB PO ONE (15:44)
[2018-05-23] MEDS: WARFARIN SODIUM 5 MG TAB PO SCH (18:23)
--- NOTE | 2018-05-23 20:10 | PN ---
Date of Progress Note: 05/23/2018 History: The patient was seen and examined. Chart reviewed and case discussed with RN. The patient states to be more alert today according to the . Did have some hallucinations last night, but is more back to baseline. Review of Systems: Negative except as above. Medications: List reviewed. Physical Examination: Vital Signs: Temperature 97.9, heart rate 96, blood pressure 114/82, respirations 18, O2 99% on 3 L via nasal cannula. General: Awake, alert, oriented to self only, ill-appearing elderly male. CV: S1 and S2. Peripheral pulses present irregularly irregular. Respiratory: Moving air well bilaterally. No wheezing or stridor. Gastrointestinal: Abdomen is soft, nontender, nondistended. Positive bowel sounds. Extremities: No clubbing, or cyanosis. Edema has improved. Neuro: Nonfocal. Laboratory Data: Sodium 142, potassium 2.7, chloride 100, CO2 33, BUN 19, creatinine 1.3, glucose 156, calcium 9.4, INR 1.36. WBC is 4.5, H and H 8.4 and 26.4, platelets 443, neutrophils 67%. Blood cultures no growth to date. Urine culture growing mixed ugo. Assessment: A 78-year-old male with: 1. Acute respiratory distress secondary to pulmonary edema. The patient requiring 2 L of oxygen. The patient does use oxygen at home. 2. Acute pulmonary edema, likely due to congestive heart failure. 3. Acute on chronic congestive heart failure with diastolic dysfunction. Recent EF of 51% seen on echo. Repeat CXR in am 4. Hypoxemia, secondary to above. 5. Atrial fibrillation with rapid ventricular response, now with controlled ventricular rate. We will continue beta-blockers. 6. Chronic obstructive pulmonary disease, chronic bronchitis, stable. The patient is oxygen dependent. 7. Alzheimer dementia with behavioral disturbance. Continues to have nightly hallucinations and agitation. Explained to the that the patient will likely need placement in Alzheimer's unit as his condition seems to be deteriorating with worsening dementia and other symptoms. We will continue home medications, use Haldol p.r.n. for agitation. 8. Diabetes mellitus type 2 with hyperglycemia, non-insulin requiring. We will continue to monitor blood glucose levels and continue sliding scale insulin and Accu-Cheks. 9. Essential hypertension stable, on home medications. 10. Obstructive sleep apnea. Continue CPAP at night. The patient is compliant. 11. Status post chronic anticoagulation for atrial fibrillation. INR is subtherapeutic. We will adjust Coumadin dose. Continue INR monitoring. 12. Neutrophilic leukocytosis, unclear source, improving. May be secondary to acute phase reactant. The patient does not appear to be septic. He is afebrile. We will continue to monitor. 13. Gastrointestinal and deep venous thrombosis prophylaxis with PPI and Coumadin. Plan: We will discuss with daughter who is the decision maker regarding placement as the patient has had multiple re-admissions this month. He would benefit from a detention facility or placement in a long-term care facility for his dementia. states that they plan to be with their daughter in [place] for the short term following this hospitalization. We will discuss further with Case Management. HOWIE Voice ID: [id number] Report ID: [id number] MARINA
[2018-05-23] MEDS ORDERED: POTASSIUM CL SA 10 MEQ TAB PO ONE (20:37)
[2018-05-23] MEDS: TAMSULOSIN 0.4 MG SR CAP PO SCH (21:35)
[2018-05-23] MEDS: ATORVASTATIN 20 MG TAB PO SCH (21:35)
[2018-05-24] MEDS: FUROSEMIDE 40 MG/4 ML VIAL IV SCH ×2 (00:37→08:42)
[2018-05-24] MEDS: METOPROLOL TAR 25 MG TAB PO SCH (05:35)
[2018-05-24 06:26] LABS: Albumin 3.1 g/dL (3.4-5.0); Bilirubin Total 0.3 mg/dL (0.2-1.0); Magnesium 1.8 mg/dL (1.8-2.4); Phosphorus 3.3 mg/dL (2.5-4.9); Potassium 3.4 mmol/L (3.5-5.1); Protein, Total 7.1 g/dL (6.4-8.2)
[2018-05-24 06:30] LABS: Absolute Lymphocytes (CBC) 1.9 K/uL (0.7-4.9); Absolute Monocytes 0.7 K/uL (0.1-1.3); Absolute Neutrophil 6.5 K/uL (1.8-8.0); Basophils % 0.9 % (0-1.3); Eosinophils % 5.8 % (0-4.4); Hematocrit 27.4 % (39.6-49.0); Lymphocytes % 19.7 % (15.3-44.8); MCH 26.2 pg (27.0-35.0); MCV 78.7 fL (80-100); MPV 7.8 fL (7.6-11.3); Monocytes % 7.4 % (3.3-12.3); RBC Red Blood Cell Count 3.48 M/uL (4.33-5.43)
[2018-05-24 06:55] LABS: Protime INR 1.34
[2018-05-24] MEDS ORDERED: MAGNESIUM SULFATE 1 gm IVPB 1 GM/100 ML BAG IV ONE (07:19)
[2018-05-24] MEDS ORDERED: POTASSIUM CL SA 10 MEQ TAB PO ONE (07:19)
--- NOTE | 2018-05-24 07:19 | RAD REPORT ---
EXAM DESCRIPTION: RAD - Chest Single View - 05/24/2018 6:28 am CLINICAL HISTORY: CHF follow-up COMPARISON: May 21 TECHNIQUE: AP portable chest image was obtained 0613 hours . FINDINGS: Interstitial markings have decreased in prominence. Lung parson are better aerated. Heart size and vasculature have decreased in prominence. No measurable pleural effusion and no pneumothorax . No acute bony abnormality seen. No acute aortic findings suspected. IMPRESSION: Near complete resolution of the CHF/volume overload findings seen May 21.
[2018-05-24] MEDS: INSULIN -REGULAR HUMAN 50 UNIT/0.5 ML ML SQ SCH (07:30)
[2018-05-24] MEDS: POTASSIUM CL SA 10 MEQ TAB PO SCH (08:40)
[2018-05-24] MEDS: LOSARTAN POTASSIUM 50 MG TABLET PO SCH (08:41)
[2018-05-24] MEDS: METFORMIN ER 500 MG TAB PO SCH (08:41)
[2018-05-24] MEDS: VITAMIN D 1000 UNIT TAB PO SCH (08:41)
[2018-05-24] MEDS: ASPIRIN EC 81 MG TAB PO SCH (08:41)
[2018-05-24] MEDS: FOLIC ACID 1 MG TABLET PO SCH (08:41)
[2018-05-24] MEDS: LACTOBACILLUS/ACIDOPHILUS TAB PO SCH (08:41)
[2018-05-24] MEDS: CEFTRIAXONE/SWI 1gm 1 GM/10 ML SYR IV SCH (08:41)
[2018-05-24] MEDS: ALLOPURINOL 300 MG TAB PO SCH (08:41)
[2018-05-24] MEDS: DONEPEZIL HCL PO SCH (08:52)
[2018-05-24] MEDS: MEMANTINE HCL PO SCH (08:52)
[2018-05-24 08:54] VITALS: O2SAT 97
[2018-05-24 12:11] VITALS: BP 124/79; TEMP 98.2
--- NOTE | 2018-05-25 04:55 | DS ---
Date of Discharge: 05/24/2018 Consultants: None. Admitting Diagnoses: 1.Acute pulmonary edema. 2.Hypoxemia. 3.Acute respiratory failure. 4.Atrial fibrillation with rapid ventricular response. 5.Congestive heart failure. 6.Chronic obstructive pulmonary disease. 7.Alzheimer's dementia. 8.Diabetes mellitus type 2. 9.Essential hypertension. 10.Obstructive sleep apnea. Discharge Diagnoses: 1.Acute respiratory failure secondary to pulmonary edema. 2.Acute pulmonary edema due to congestive heart failure. 3.[id number] congestive heart failure with diastolic dysfunction, EF 51%. 4.Hypoxemia. 5.Atrial fibrillation with rapid ventricular response, now with controlled ventricular rate. 6.Chronic obstructive pulmonary disease, chronic bronchitis. 7.Alzheimer's dementia with behavioral disturbance. 8.Diabetes mellitus type 2 with hyperglycemia, non-insulin requiring. 9.Essential hypertension. 10.Obstructive sleep apnea, on CPAP. 11.Status post chronic anticoagulation for atrial fibrillation. 12.Neutrophilic leukocytosis, resolved. Hospital Course: The patient is a 78-year-old male with significant comorbid conditions including at rial fibrillation, on Coumadin; congestive heart failure; COPD; diabetes; hypertension; as well as Al zheimer's dementia with significant hallucinations and behavioral disturbances; who has been readmitt ed to the hospital multiple times for shortness of breath resulting from pulmonary edema and related to his congestive heart failure. The patient's workup revealed interstitial pulmonary edema. He was started on diuretics. His condition improved. His repeat chest x-ray showed significant clearing. He did have some atrial fibrillation with rapid ventricular rate in the 150s. He was started on bet a-blockers and improved. He did have elevated white blood cell count of 21,000 without the source of infection. Did not have any fevers. His procalcitonin was negative, however, his lactate was high. Lactate level did come back down to normal. The patient remained afebrile. His WBC count improved . He was started on Rocephin prophylactically due to some trace leukocyte esterase and bacteria seen in the urine. However, his final urine culture showed mixed ugo. Therefore, will not need any fu rther antibiotics. His blood culture remained negative. The patient does not appear septic. The onel roy's mental status also improved. He was back to his baseline, which is still not normal as he is demented and is not oriented. I had a long discussion with his daughter, Margareth, who lives in [facility] regarding long-term placement for the patient as the seems to need respite from being the patient's caregiver. The patient does have hallucinations at night, remains agitated. Family's dionisio n is to transfer the parents to [place] and will be in a facility that is across the street from their neighborhood. The patient is not doing well. He was back to his home level of oxygenation at 2 L. The patient was then discharged in a stable condition. Activity: Fall precautions. Diet: Low-sodium, fluid-restricted diet. Followup: With primary care physician in 2 to 3 days. Follow up with print producer in 2 weeks. Retu rn to ER for worsening condition. Medications: As per medication reconciliation list. Physical Examination: General: Awake, alert, oriented to self only. CV: S1, S2. Peripheral pulses present. Respiratory: Moving air well bilaterally. Abdomen: Soft, nontender, nondistended. Positive bowel sounds. Extremities: No clubbing, cyanosis, or edema. Neuro: Nonfocal. Total time spent discharging the patient was 37 minutes. HOWIE Voice ID: [id number] Report ID: [id number]
== END 2018-05-24 12:10 | disposition home or self-care (01) | DRG 291 ==
LOC: ER 20:00 → ERHOLD 05-22 00:06 → 4TH 05-22 01:14 → OBSVTOIN 05-22 08:32
PROVIDERS: ADMIT Hospitalist; ATTEND Family Medicine
DX: I11.0 Hypertensive heart disease with heart failure (principal); J96.01 Acute respiratory failure with hypoxia; F02.81 Dementia in other diseases classified elsewhere, unspecified severity, with behavioral disturbance; I50.33 Acute on chronic diastolic (congestive) heart failure; I48.91 Unspecified atrial fibrillation; J44.9 Chronic obstructive pulmonary disease, unspecified; G30.9 Alzheimer's disease, unspecified; E11.65 Type 2 diabetes mellitus with hyperglycemia; G47.33 Obstructive sleep apnea (adult) (pediatric); D72.828 Other elevated white blood cell count; Z88.5 Allergy status to narcotic agent; Z88.8 Allergy status to other drugs, medicaments and biological substances; Z79.01 Long term (current) use of anticoagulants; Z79.84 Long term (current) use of oral hypoglycemic drugs
CPT/HCPCS: 36415; 71045; 80048; 80053; 80076; 81003; 81015; 82805; 82962; 83605; 83735; 83880; 84100; 84132; 84145; 84484; 85025; 85610; 87040; 87086; 87088; 93005; 96365; 96375; 97163; 99285; G0378; J0696; J1940; J3420; J3475; P9047